=== PATIENT | female | born 1940 | race Caucasian/White ===

== ENCOUNTER 2020-02-21 00:36 | Outpatient (CLI) | payer MEDICARE, OTHER, SELFPAY ==
[2020-02-21 18:58] LABS: SARS-CoV-2 RNA PCR Negative
== END 2020-02-21 00:37 | disposition home or self-care (01) ==
LOC: ANHCOVIDDT 00:36
PROVIDERS: Visit Provider Internal Medicine Gastroenterology
DX: Z01.818 Encounter for other preprocedural examination (principal); Z11.59 Encounter for screening for other viral diseases
CPT/HCPCS: 87635; C9803; U0003

== ENCOUNTER 2020-02-23 01:54 | Day surgery (SDC) | payer MEDICARE, OTHER, SELFPAY ==
[2020-02-20 10:27] VITALS: BMI 31.4
[2020-02-23 08:39] VITALS: BP 132/71; PULSE 76; RESP 18; TEMP 36; O2SAT 100; BMI 31.1
[2020-02-23] MEDS: LACTATED RINGERS 1,000 ML 150 ML IV CONT (08:54)
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
--- NOTE | 2020-02-23 09:05 | WPDGICN ---
Assessment and Plan Assessment and plan (1) Epigastric abdominal pain: Code(s): R10.13 - Epigastric pain Status: Acute Assessment and Plan: Patient appears to be improving clinically taking a higher dose of omeprazole currently 20 mg p.o. daily b.i.d.. Because of abnormal CT scan findings in the duodenum an EGD will be performed. Further recommendations will be given after endoscopy. Currently she is to avoid bland foods. And avoid nonsteroidal anti-inflammatory agents. (2) Abnormal CT scan: Code(s): R93.89 - Abnormal findings on diagnostic imaging of other specified body structures Status: Acute GI Consult Note Consult date/time: 02/23/20 09:05 HPI: Wanda Christian is a 79 year old female Seen in evaluation at the request of Dr. Jacqui Salvador. Patient has a history of vomiting initially in since November . At that time she was found to have influenza a. She noted vomiting associated with epigastric pain. In December of 2019 was admitted to [facility] and diagnosed with myocardial infarction. She has continued to take omeprazole since that time supplemented this with Tums. She has also tried Zofran with no relief of symptoms. A CT scan of the abdomen was performed which revealed a thickening in the duodenum and for this reason an EGD is to be performed. Patient's past medical history is significant for hypertension and COPD. She has a history of a colonoscopy in 2017 however this was limited by poor preparation. Patient reports a recent fall with fracture to her left thumb which is currently bandaged. Review of Systems Review of Systems: All systems reviewed & are unremarkable except as noted in HPI and below Meds Home Medications and Allergies Home Medications Medication Instructions Recorded Confirmed Type acetaminophen-codeine 1 tablet PO PRN PRN 02/20/20 02/23/20 History acidophilus-pectin, citrus 1 cap PO DAILY 02/20/20 02/23/20 History [Acidophilus Probiotic] albuterol sulfate 1 mg INHALATION PRN PRN 02/20/20 02/23/20 History albuterol sulfate [Ventolin HFA] 2 puff INHALATION QID PRN 02/20/20 02/23/20 History aspirin 81 mg PO DAILY 02/20/20 02/23/20 History atorvastatin 40 mg PO DAILY 02/20/20 02/23/20 History calcium carbonate [Calcium 500] 500 mg PO DAILY 02/20/20 02/23/20 History chlorthalidone 12.5 mg PO DAILY 02/20/20 02/23/20 History cholecalciferol (vitamin D3) 3,000 unit PO DAILY 02/20/20 02/20/20 History [Vitamin D3] fluticasone propionate [Flovent 2 inh INHALATION BID 02/20/20 02/23/20 History Diskus] guaifenesin [Mucinex] 600 mg PO Q12H PRN 02/20/20 02/23/20 History levothyroxine [Synthroid] 50 mcg PO DAILY 02/20/20 02/23/20 History lisinopril 20 mg PO DAILY 02/20/20 02/23/20 History lutein 20 mg PO DAILY 02/20/20 02/23/20 History metoprolol succinate 100 mg PO BID 02/20/20 02/23/20 History milnacipran [Savella] 50 mg PO BID 02/20/20 02/23/20 History qlauezxjmqib-mpq-fxym-FA-vit K 1 tablet PO DAILY 02/20/20 02/23/20 History [Adults Multivitamin] polyethylene glycol 3350 [Miralax] 17 g PO DAILY 02/20/20 02/23/20 History spironolactone 25 mg PO DAILY 02/20/20 02/23/20 History vit C-E-zinc fyp-hcyewa-ysgnpq 2 tablet PO DAILY 02/20/20 02/23/20 History [[facility] [place]] Allergies Allergy/AdvReac Type Severity Reaction Status Date / Time latex Allergy Mild Rash Verified 02/20/20 10:51 Vital Signs Vital Signs - 24 hr 02/23/20 08:39 Temperature 36.0 C L Pulse Rate 76 Respiratory Rate 18 Blood Pressure 132/71 Pulse Oximetry 100 Exam Narrative: Exam Narrative: Physical exam reveals patient to be alert. Vital signs are stable. HEENT exam unremarkable. Lungs are clear to auscultation and percussion. Heart is without murmur or extra sounds. Abdominal exam bowel sounds are present soft epigastric tenderness noted in the office 1 week ago has begun to improve. On a higher dose of omeprazole. digital external rectal exam is defer
--- NOTE | 2020-02-23 09:14 | WPDANESEPPF ---
Anes - Initial Pre Proc Eval Procedure: Operation Date: 02/23/20 09:00 Proposed Procedures p Esophagogastroduodenoscopy - Gianni Johnson MD Date/Time: 02/23/20 09:14 Surgeon: Gianni Johnson MD Pre Op Diagnosis: Epigastric Pain Patient Data Age: 79 Gender: F Height: 5 ft 4 in Weight: 82.3 kg Last Vital Signs Temp 96.8 F L 02/23/20 08:39 Pulse 76 02/23/20 08:39 Resp 18 02/23/20 08:39 BP 132/71 02/23/20 08:39 Pulse Ox 100 02/23/20 08:39 Allergies Allergy/AdvReac Type Severity Reaction Status Date / Time latex Allergy Mild Rash Verified 02/20/20 10:51 Home Medications Medication Instructions Recorded Confirmed Type acetaminophen-codeine 1 tablet PO PRN PRN 02/20/20 02/23/20 History acidophilus-pectin, citrus 1 cap PO DAILY 02/20/20 02/23/20 History [Acidophilus Probiotic] albuterol sulfate 1 mg INHALATION PRN PRN 02/20/20 02/23/20 History albuterol sulfate [Ventolin HFA] 2 puff INHALATION QID PRN 02/20/20 02/23/20 History aspirin 81 mg PO DAILY 02/20/20 02/23/20 History atorvastatin 40 mg PO DAILY 02/20/20 02/23/20 History calcium carbonate [Calcium 500] 500 mg PO DAILY 02/20/20 02/23/20 History chlorthalidone 12.5 mg PO DAILY 02/20/20 02/23/20 History cholecalciferol (vitamin D3) 3,000 unit PO DAILY 02/20/20 02/20/20 History [Vitamin D3] fluticasone propionate [Flovent 2 inh INHALATION BID 02/20/20 02/23/20 History Diskus] guaifenesin [Mucinex] 600 mg PO Q12H PRN 02/20/20 02/23/20 History levothyroxine [Synthroid] 50 mcg PO DAILY 02/20/20 02/23/20 History lisinopril 20 mg PO DAILY 02/20/20 02/23/20 History lutein 20 mg PO DAILY 02/20/20 02/23/20 History metoprolol succinate 100 mg PO BID 02/20/20 02/23/20 History milnacipran [Savella] 50 mg PO BID 02/20/20 02/23/20 History hctcxdopddzk-ivv-egbe-FA-vit K 1 tablet PO DAILY 02/20/20 02/23/20 History [Adults Multivitamin] polyethylene glycol 3350 [Miralax] 17 g PO DAILY 02/20/20 02/23/20 History spironolactone 25 mg PO DAILY 02/20/20 02/23/20 History vit C-E-zinc iif-uhqtot-sijudx 2 tablet PO DAILY 02/20/20 02/23/20 History [[facility]] Patient hx anesthesia problems: none Family hx anesthesia problems: none [facility] Past Medical History Medical History (Updated 02/23/20 @ 09:14 by Ace Kimble MD) COPD (chronic obstructive pulmonary disease) Hypertension Anes - Eval Final PreProcedure Day of Procedure 02/23/20 09:14 Patient weight: overweight Heart: regular rate and rhythm Lungs: clear to auscultation Airway: Mallampati scale class II Neurological: alert and oriented Last oral intake: >/= 8 hours ASA classification: II Emergent: no Anesthetic plan: proceed Anesthesia type and monitoring: general GIVS and standard monitoring Informed Consent: The patient's anesthetic plan and its attendant risks and benefits were discussed with the patient/family/POA. Questions were solicited and answers provided to the satisfaction of the patient/family/POA.
[2020-02-23] MEDS: BENZOCAINE (*SP) 60 ML SPRAY CAN (HURRICAINE) 1 SPRAY MUCOUS MEM (09:15)
[2020-02-23 09:30] VITALS: BP 99/46; PULSE 63; RESP 15; O2SAT 100
[2020-02-23 09:40] VITALS: BP 96/48; PULSE 63; RESP 15; O2SAT 100
[2020-02-23 09:50] VITALS: BP 96/48; PULSE 63; RESP 15; O2SAT 100
== END 2020-02-23 10:20 | disposition home or self-care (01) ==
PROVIDERS: PCP Family Medicine Sports Medicine; Visit Provider Internal Medicine Gastroenterology
PROC: 0DJ08ZZ Inspection of Upper Intestinal Tract, Via Natural or Artificial Opening Endoscopic (ICD-10-PCS; CPT 43235; principal; 2020-02-23 09:00)
DX: K31.84 Gastroparesis (principal); I10 Essential (primary) hypertension; J44.9 Chronic obstructive pulmonary disease, unspecified; Z79.82 Long term (current) use of aspirin
CPT/HCPCS: 43239; 87081; J2704; J7120

== ENCOUNTER 2025-04-05 10:35 | Emergency (ER) | payer MEDICARE, OTHER, SELFPAY ==
--- NOTE | ~2025-04-05 | CT_ITS ---
EXAMINATION: CT abdomen pelvis wo con DATE: 04/05/2025 13:51 INDICATION: Evaluate for kidney stones. TECHNIQUE: Computed tomography (CT) of the abdomen and pelvis was performed without intravenous contr ast. The dose-length product was 250.15 mGy-cm. Automated exposure control and iterative reconstructi on technique were employed. COMPARISON: None. FINDINGS: Lung bases unremarkable. Heart size normal. No significant pleural or pericardial effusion. There are multiple bilateral renal stones, largest in the right renal pelvis measuring 1.7 cm. No ur eteral stones. Bladder is unremarkable. There is high density material dependently in the gallbladder , likely sludge. The spleen, adrenal glands and pancreas are unremarkable. 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 Nonobstructive bowel gas pa ttern. No ureteral stones or hydronephrosis. Severe lumbar spondylosis. IMPRESSION: 1. Bilateral nephrolithiasis, nonobstructing. 2: High density material in the gallbladder dependently, most likely sludge versus stones. 3: Splenic artery aneurysm measuring 10 mm. Reviewed, dictated and finalized at location A. IMPRESSION: 1. Bilateral nephrolithiasis, nonobstructing. 2: High density material in the gallbladder dependently, most likely sludge alison raza stones. 3: Splenic artery aneurysm measuring 10 mm.
[2025-04-05 10:40] VITALS: BP 174/94; PULSE 111; RESP 16; TEMP 36.6; O2SAT 96
[2025-04-05 10:54] LABS: Hematocrit 43.5 % (37.0-47.0); Hemoglobin 14.3 g/dL (12.0-15.0); Immature Granulocyte Percent A 0.5 % (0-0.5); Lymphocytes Absolute Auto 2.11 K/mm3 (0.9-3.2); Mean Corpuscular HGB Conc 32.9 g/dl (32-36); Mean Corpuscular Hemoglobin 32.4 pg (26-34); Mean Corpuscular Volume 98.6 fl (80-100); Nucleated Red Blood Cells Absolute Auto 0.000 K/mm3 (0.0-0.012); Nucleated Red Blood Cells Perc 0.0 % (0.0-0.2); Platelet Count Result 272 k/mm3 (150-375); Red Blood Count 4.41 M/mm3 (4.2-5.4); White Blood Count 9.6 K/mm3 (4.5-10.0)
[2025-04-05 11:26] LABS: Alanine Aminotransferase 23 U/L (6-35); Albumin Level 4.6 g/dL (3.5-5.1); Alkaline Phosphatase 85 U/L (38-126); Anion Gap 9 mmol/L (4-12); Aspartate Amino Transferase 41 U/L (14-36); Bilirubin,Total 0.6 mg/dL (0.2-1.3); Blood Urea Nitrogen 16 mg/dL (7-17); Calcium 9.5 mg/dL (8.4-10.2); Carbon Dioxide 27 mmol/L (22-30); Chloride 102 mmol/L (98-107); Estimated CRCL calculation 41 ml/min; Estimated Glomerular Filt Rate 60; Glucose 121 mg/dL (65-110); Potassium 4.0 mmol/L (3.4-5.0); Sodium 138 mmol/L (137-145); Total Protein 7.7 g/dL (6.3-8.2)
[2025-04-05 13:25] VITALS: BP 190/109; PULSE 107; TEMP 36.8; O2SAT 95
--- NOTE | 2025-04-05 13:37 | ED_ITS ---
HPI - Female Genitourinary General Chief complaint: Urogenital-Female Stated complaint: R sided kidney stone is moving Time Seen by Provider: 04/05/25 13:30 History of Present Illness HPI Narrative: Pt complains of pain in left flank and blood in urine this morning. Pt has history of stones in left kidney and sees urologist at [facility]. Pt denies nausea or vomiting or dysuria or frequency. Related Data Home Medications ?Medication ?Instructions ?Recorded ?Confirmed ?Last Taken ?Type acetaminophen 300 mg-codeine 30 mg 1 tablet PO PRN PRN Pain 02/20/20 02/23/20 02/22/20 21:00 History tablet acidophilus 100 million 1 cap PO DAILY 02/20/20 02/23/20 02/22/20 09:00 History cell-pectin, citrus 10 mg capsule (Acidophilus Probiotic) albuterol sulfate 1.25 mg/3 mL 1 mg inhalation PRN PRN Shortness 02/20/20 02/23/20 02/15/20 History solution for nebulization Of Breath albuterol sulfate 90 mcg/actuation 2 puff inhalation QID PRN 02/20/20 02/23/20 02/23/20 06:00 History aerosol inhaler (Ventolin HFA) Shortness Of Breath aspirin 81 mg tablet,delayed 81 mg PO DAILY 02/20/20 02/23/20 02/22/20 09:00 History release atorvastatin 40 mg tablet 40 mg PO DAILY 02/20/20 02/23/20 02/22/20 21:00 History calcium carbonate (Calcium 500) 500 mg PO DAILY 02/20/20 02/23/20 02/22/20 09:00 History chlorthalidone 25 mg tablet 12.5 mg PO DAILY 02/20/20 02/23/20 02/22/20 09:00 History cholecalciferol (vitamin D3) 25 3,000 unit PO DAILY 02/20/20 02/20/20 Unknown History mcg (1,000 unit) tablet (Vitamin D3) fluticasone propionate 50 2 inh inhalation BID 02/20/20 02/23/20 02/22/20 09:00 History mcg/actuation blister powder for inhalation (Flovent Diskus) guaifenesin 600 mg tablet, 600 mg PO Q12H PRN Congestion 02/20/20 02/23/20 02/09/20 History extended release 12 hr (Mucinex) levothyroxine 50 mcg tablet 50 mcg PO DAILY 02/20/20 02/23/20 02/22/20 06:00 History (Synthroid) lisinopril 40 mg tablet 20 mg PO DAILY 02/20/20 02/23/20 02/23/20 06:00 History lutein 20 mg capsule 20 mg PO DAILY 02/20/20 02/23/20 02/22/20 21:00 History metoprolol succinate 50 mg 100 mg PO BID 02/20/20 02/23/20 02/23/20 06:00 History tablet,extended release 24 hr milnacipran 50 mg tablet (Savella) 50 mg PO BID 02/20/20 02/23/20 02/22/20 21:00 History multivit with minerals-iron 18 1 tablet PO DAILY 02/20/20 02/23/20 02/22/20 09:00 History mg-folic ac 400 mcg-vit K 25 mcg tablet (Adults Multivitamin) polyethylene glycol 3350 17 17 g PO DAILY 02/20/20 02/23/20 02/22/20 09:00 History gram/dose oral powder (Miralax) spironolactone 25 mg tablet 25 mg PO DAILY 02/20/20 02/23/20 02/22/20 09:00 History vit C 50 mg-E 15 unit-zinc cit 4.5 2 tablet PO DAILY 02/20/20 02/23/20 02/22/20 09:00 History mg-lutein 2.5 mg-zeaxan chew tablet (Omate) Allergies Allergy/AdvReac Type Severity Reaction Status Date / Time latex Allergy Mild Rash Verified 02/20/20 10:51 Review of Systems 2 Review of Systems: All systems reviewed & are unremarkable except as noted in HPI and below PMFSH Past Medical History Medical History (Updated 04/05/25 @ 17:05 by Frederick Mcleod III, DO) COPD (chronic obstructive pulmonary disease) Hypertension Exam 2 Const: General: healthy appearing and no acute distress Nutritional Appearance: well nourished Orientation/consciousness: patient oriented x3 Limitations: no limitations Resp: Effort & Inspection: normal respiratory effort Auscultation: clear to auscultation bilaterally Cardio: Rate: regular rate Rhythm: regular rhythm GI: GI Palp: Yes Soft to palpation and No Tenderness to palpation present (GI) Auscultation: normal bowel sounds : General: Yes bladder normal to palpation and Yes CVA tenderness on the left Back/Spine/Pelvis: Back: CVA tenderness Skin: General skin exam: normal color Rashes: no rashes Wounds: no wounds Neuro: General: patient oriented x3, moves all extremities, no focal motor deficits and CN's II-XI intact bilaterally Cranial nerves: Yes Nystagmus not present Speech: normal speech Extrem: General: normal to inspection and no clubbing, cyanosis or edema Psych: Appearance: grossly normal Mental Status: mental status grossly normal Affect: normal affect Attitude: cooperative Course Vital Signs Vital signs: Vital Signs Temperature 97.9 F 04/05/25 10:40 Pulse Rate 111 H 04/05/25 10:40 Respiratory Rate 16 04/05/25 10:40 Blood Pressure 174/94 H 04/05/25 10:40 Pulse Oximetry 96 04/05/25 10:40 Temperature 98.3 F 04/05/25 13:25 Pulse Rate 90 04/05/25 17:17 Respiratory Rate 19 04/05/25 17:17 Blood Pressure 167/109 H 04/05/25 17:17 Pulse Oximetry 98 04/05/25 17:17 MDM - Female Genitourinary MDM Narrative Medical decision making narrative: Pt has left flank pain and hematuria and hx of stones, ua labs and ct abd pelvis to rule out stone ordered. labs unremarkable. ua show blood but not infected. ct shows non obstructing nephrolithiasis but no ureterolithiasis. will give shot of toradol and home on flomax and norco and urology follow up. Lab Data 04/05/25 10:45 04/05/25 10:45 Labs: Lab Results 04/05/25 04/05/25 Range/Units 10:45 13:23 WBC 9.6 (4.5-10.0) K/mm3 RBC 4.41 (4.2-5.4) M/mm3 Hgb 14.3 (12.0-15.0) g/dL Hct 43.5 (37.0-47.0) % MCV 98.6 (80-100) fl MCH 32.4 (26-34) pg MCHC 32.9 (32-36) g/dl RDW 12.1 (11.5-14.5) % Plt Count 272 (150-375) k/mm3 MPV 9.6 (7.4-10.4) fl Immature Gran % (Auto) 0.5 (0-0.5) % Neut % (Auto) 67.8 (45.5-73.1) % Lymph % (Auto) 21.9 (18.3-44.2) % [place] % (Auto) 6.5 (2.6-8.5) % Eos % (Auto) 3.0 (0-4.4) % Baso % (Auto) 0.3 (0.2-1.2) % Lymph # (Auto) 2.11 (0.9-3.2) K/mm3 [place] # (Auto) 0.6 (0.1-0.6) K/mm3 Eos # (Auto) 0.3 (0-0.3) K/mm3 Baso # (Auto) 0.0 (0.0-0.1) K/mm3 Abs Immat Gran (auto) 0.05 H (0.00-0.031) K/mm3 Absolute Neuts (auto) 6.5 (1.3-6.7) K/mm3 Absolute Nucleated RBC 0.000 (0.0-0.012) K/mm3 Nucleated RBC % 0.0 (0.0-0.2) % Sodium 138 (137-145) mmol/L Potassium 4.0 (3.4-5.0) mmol/L Chloride 102 (98-107) mmol/L Carbon Dioxide 27 (22-30) mmol/L Anion Gap 9 (4-12) mmol/L BUN 16 (7-17) mg/dL Creatinine 0.90 (0.7-1.0) mg/dL Estim Creat Clear Calc 41 ml/min Estimated GFR 60 (59 - ) Glucose 121 H (65-110) mg/dL Calcium 9.5 (8.4-10.2) mg/dL Total Bilirubin 0.6 (0.2-1.3) mg/dL AST 41 H (14-36) U/L ALT 23 (6-35) U/L Alkaline Phosphatase 85 (38-126) U/L Total Protein 7.7 (6.3-8.2) g/dL Albumin 4.6 (3.5-5.1) g/dL Urine Color Yellow (Yellow) Urine Appearance Clear (Clear) Urine pH 7.0 (5.0-9.0) Ur Specific [place] 1.004 (1.001-1.035) Urine Protein Negative (Negative) mg/dL Urine Glucose (UA) Negative (Negative) mg/dL Urine Ketones Negative (Negative) mg/dL Ur Blood (Man) 2+ H (Negative) Urine Nitrate Negative (Negative) Urine Bilirubin Negative (Negative) Urine Urobilinogen 0.2 (<2.0) mg/dL Add Ur Microanalysis Reviewed Leukocyte Esterase Rfl Trace H (Negative) GREG/UL Urine RBC 0-2 (0-2) /hpf Urine WBC 0-5 (0-3) /hpf Ur Squamous Epith Cells None seen (Few) /hpf Urine Bacteria None seen /hpf Urine Casts 0-2 Discharge Plan Discharge Clinical Impression: Acute left flank pain Patient Disposition: Home Condition: Stable Instructions: Antibiotic Form, Kidney Stones (ED), Hematuria (ED) Patient Language: Unknown Prescriptions: New tamsulosin [Flomax] 0.4 mg capsule 0.4 mg PO DAILY Qty: 10 0RF hydrocodone-acetaminophen 5-325 mg tablet 1 tablet PO Q6H PRN (Reason: pain) Qty: 10 0RF No Action atorvastatin 40 mg Tablet 40 mg PO DAILY metoprolol succinate 50 mg tablet extended release 24 hr 100 mg PO BID acetaminophen-codeine 300-30 mg tablet 1 tablet PO PRN PRN (Reason: Pain) chlorthalidone 25 mg tablet 12.5 mg PO DAILY aspirin 81 mg Tablet,Delayed Release (Dr/Ec) 81 mg PO DAILY spironolactone 25 mg tablet 25 mg PO DAILY calcium carbonate [Calcium 500] 500 mg calcium (1,250 mg) Tablet 500 mg PO DAILY levothyroxine [Synthroid] 50 mcg Tablet 50 mcg PO DAILY polyethylene glycol 3350 [Miralax] 17 gram/dose Powder 17 g PO DAILY lisinopril 40 mg tablet 20 mg PO DAILY lutein 20 mg Capsule 20 mg PO DAILY cholecalciferol (vitamin D3) [Vitamin D3] 25 mcg (1,000 unit) Tablet 3,000 unit PO DAILY Savella 50 mg Tablet 50 mg PO BID acidophilus-pectin, citrus [Acidophilus Probiotic] 100 million cell-10 mg Capsule 1 cap PO DAILY guaifenesin [Mucinex] 600 mg Tablet Extended Release 12hr 600 mg PO Q12H PRN (Reason: Congestion) Adults Multivitamin 18 mg iron-400 mcg-25 mcg Tablet 1 tablet PO DAILY Ocuvite Eye [facility] 50 mg-15 unit- 4.5 mg-2.5 mg Tablet,Chewable 2 tablet PO DAILY Flovent Diskus 50 mcg/actuation Blister With Device 2 inh INHALATION BID albuterol sulfate 1.25 mg/3 mL Solution For Nebulization 1 mg inhalation PRN PRN (Reason: Shortness Of Breath) albuterol sulfate [Ventolin HFA] 90 mcg/actuation Hfa Aerosol Inhaler 2 puff INHALATION QID PRN (Reason: Shortness Of Breath) Follow-up/Referrals: [place],Jacqui Mims DO [Primary Care Provider] -
[2025-04-05 13:45] LABS: Add Urine Microscopic? YES; Appearance Urine Clear (Clear); Glucose Urine UA Negative (Negative); Leukocyte Esterase Ur Trace LEU/UL (Negative); Need Manual Microscopic Reviewed; Nitrate Urine Negative (Negative); Non Pathogenic Casts 0-2; Specific Grav Ur 1.004 (1.001-1.035)
[2025-04-05 16:34] VITALS: BP 180/103; PULSE 99; RESP 18; O2SAT 93
[2025-04-05 16:55] VITALS: BP 176/97
[2025-04-05] MEDS: KETOROLAC 30 MG/ML VIAL (*BKC) IM (17:14)
[2025-04-05 17:17] VITALS: BP 167/109; PULSE 90; RESP 19; O2SAT 98
== END 2025-04-05 17:33 | disposition home or self-care (01) ==
PROVIDERS: Emergency Medicine; Emergency Provider Emergency Medicine; PCP Family Medicine Sports Medicine
DX: R10.9 Unspecified abdominal pain (principal); J44.9 Chronic obstructive pulmonary disease, unspecified; I10 Essential (primary) hypertension; Z87.442 Personal history of urinary calculi; Z79.899 Other long term (current) drug therapy; Z79.82 Long term (current) use of aspirin
CPT/HCPCS: 36415; 74176; 80053; 81001; 85025; 96372; 99284; J1885

== ENCOUNTER 2025-04-14 12:27 | Outpatient (CLI) | payer MEDICARE, OTHER, SELFPAY ==
--- NOTE | 2025-04-14 12:35 | ECG_ITS ---
Test Date: 2025-04-14 12:50:35 Measurements Intervals [place] Rate: 92 P: 36 [place]: 136 QRS: 3 QRSD: 148 T: 132 QT: 423 QTc: 526 Interpretive Statements SINUS RHYTHM LEFT BUNDLE BRANCH BLOCK BASELINE ARTIFACT- I, II, III, AVR, AVL, AVF ABNORMAL ECG No previous ECG available for comparison Electronically Signed On 04-14-2025 12:56:19 CDT by Ernie Harris D.O.
[2025-04-14 13:40] LABS: INR 1.1; Prothrombin Time 14.2 Seconds (11.1-14.7)
[2025-04-14 13:41] LABS: Partial Thromboplastin Time 33.9 Seconds (22.3-36.8)
== END 2025-04-14 12:28 | disposition home or self-care (01) ==
LOC: ANHSURGERY 12:30
PROVIDERS: PCP Family Medicine Sports Medicine; Visit Provider Urology
DX: Z01.818 Encounter for other preprocedural examination (principal); R94.31 Abnormal electrocardiogram [ECG] [EKG]; N20.0 Calculus of kidney; E78.00 Pure hypercholesterolemia, unspecified
CPT/HCPCS: 36415; 85610; 85730; 87086; 93005

== ENCOUNTER 2025-04-20 02:50 | Day surgery (SDC) | payer MEDICARE, OTHER, SELFPAY ==
--- NOTE | 2025-04-13 15:25 | PC.NURSE ---
Report to the Outpatient Waiting Room, entrance under the green pavilion located off [facility], at time _11AM on date _04/20/25 . Planned Procedure Time: ___1:00PM .? Time changes happen often and if your time is changed the preop area will call you the afternoon before. - You and your visitor will be asked to self-screen and do not enter if you have any COVID symptoms. Please call surgeon if you need to reschedule. - A mask is optional within the hospital at this time. Patients may have clear liquids (water, carbonated beverages, clear teas, apple juice) until 3 hours prior to surgery ( 10 AM) with a maximum of 20 ounces. - No food from midnight until time of surgery and no smoking, or chewing tobacco (or any form of nicotine). No chewing gum, candy or mints. Take only the following medications with a SIP of water on the morning of surgery: __PAIN PILL IF NEEDED,INHALER,LEVOTHYROXINE DO NOT STOP ANY OF YOUR OTHER PRESCRIPTION MEDICATIONS PRIOR TO SURGERY EXCEPT THE FOLLOWING Hold all vitamins and supplements for 3 days per anesthesiologist.LAST DOSE 04/16/25 Medications to discontinue per physician ____PT STATES HOLD ASPIRIN 7 DAYS PRE OP PER DR HDZ Date to take last dose 04/12/25 Please no make-up, nail nauruan, hairspray, perfume, deodorant, or body powder the day of surgery.? No jewelry (including any body piercings) or valuables the day of surgery, leave them at home.? Please take a shower or bath the night before, or the morning of, surgery with an antibacterial soap.? Wear comfortable, loose fitting clothing.? Children are encouraged to wear pajamas. - Jewelry must be removed prior to entering the operating room.? Rings and piercings that are not removed may be cut off. - The hospital will not accept responsibility for valuables.? - Please leave all valuables, including medications, at home the day of surgery. If you are going home after surgery, a licensed trailer truck driver must drive you home.? - NO public transportation without another adult if you receive anesthesia. - We recommend that an adult stay with you for 24 hours following discharge. - We also recommend that you do not drive, make important decision, drink alcoholic beverages, or take any drugs that were not prescribed by your health care provider for at least 24 hours after your discharge time. For Pediatric surgeries, we recommend two adults accompany the child home. Follow any additional instructions given to you from your surgeon. Telephone instructions given to _PATIENT and asked if any additional questions and then verbalized understanding. Patient advised to call surgeon office or pre surgery nurse liaison [phone] if any additional questions.
[2025-04-13 15:56] VITALS: BMI 32.0
[2025-04-20] VITALS (8 sets, daily range): BP systolic 142–176; BP diastolic 66–84; PULSE 90–98; RESP 8–18; TEMP 36.7–37.4; O2SAT 91–97; BMI 32.5
--- NOTE | ~2025-04-20 | XR_ITS ---
XR abdomen/kub 1V 04/20/2025 10:52 Indication: ESWL Procedure: KUB Comparison: No prior studies for comparison. Findings: There is a right renal stone measuringr 2 x 1.2 cm. Bowel gas pattern nonobstructive. Moder ate colonic fecal loading. Severe lumbar spondylosis with dextrocurvature of the lumbar spine. Impression: 1: Right nephrolithiasis Reviewed, dictated and finalized at location A. Impression: 1: Right nephrolithiasis
--- OUTSIDE RECORDS SUMMARY | 2025-04-20 02:53 | XMS_ITS | Encounter Summary ---
Author Organization [facility] Address [address] [place] [address] Care Team Providers Care Flatbed Press Operator Name Role Phone Jacqui Salvador DO Primary Care Provider [phone] Katia Regan ANP- Unavailable [phone] Encounter Details Date Type Department Care Team (Late st Contact Info) Description 06/23/2016 Abstract [facility] [address] [place] [phone] Arsenio Pandya MD Social History Tobacco Use Types Packs/Day Years Used Date Smoking Tobacco: Never Assessed Comments Unknown Sex and Gender Information Value Date Recorded Sex Assigned at Female 10/06/2024 9:34 AM ELECTRICIAN CONTROL EQUIPMENT Legal Sex Female 6:20 PM CDT Gender Identity Female 12/12/2019 10:23 PM CDT Sexual Orientation Straight 11/16/2020 2: 19 PM ELECTRICIAN CONTROL EQUIPMENT documented as of this encounter Plan of Treatment Upcoming Encounters Date Type Department Care Team (Late st Contact Info) Description 04/25/2025 3:00 PM CDT Office Visit [facility] Clinic [address] [phone] Jacqui Salvador DO [address] [place] [address] Bharat Cox MD 3 [facility] [address] [place] [address] 05/17/2025 2:20 PM CDT [facility] [address] [facility], [address] [place] [phone] Feliz Hagen MD [address] [facility] [place] [address] 06/22/2025 11:15 AM CDT Office Visit [facility] [place] [phone] Oliver Nuñez NP Three [facility] [address] [place] [address] 06/27/2025 9:40 AM CDT Office Visit [facility] [address] [facility] [place] [address] Jacqui Salvador DO [address] [place] [address] [place] [address] 07/05/2025 9:20 AM CDT [facility] [address] [facility] [place] [phone] Bravo Suh DO [facility] [address] [place] [address] 09/18/2025 10:40 AM ELECTRICIAN CONTROL EQUIPMENT Office Visit [facility] [address] [facility], [address] [place] [phone] Med Fiore MD [address] [place] [address] documented as of this encounter Visit Diagnoses Not on filedocumented in this encounter Additional Health Concerns Infection Onset Date Last Indicated Resolved Time COVID-19 Rule Out 12/07/2019 12/07/2019 08/05/2021 2:39 PM ELECTRICIAN CONTROL EQUIPMENT COVID-19 Rule Out 04/15/2020 04/15/2020 04/16/2020 2:39 PM CDT COVID-19 Rule Out 04/17/2020 04/15/2020 06/16/2020 12:33 AM CDT COVID-19 Rule Out 11/16/2020 11/16/2020 11/16/2020 12:25 PM ELECTRICIAN CONTROL EQUIPMENT COVID-19 Rule Out 05/07/2022 05/07/2022 05/07/2022 10:06 AM CDT COVID-19 Confirmed Comment:05/27/[address] Campuzano, patient meets [facility] guidelines to discontinue COVID-19 isolation. (RG) 05/07/2022 05/07/2022 05/27/2022 8:15 AM C DT COVID-19 Rule Out 2022 2022 2022 10:10 AM ELECTRICIAN CONTROL EQUIPMENT COVID-19 Rule Out 11/15/2022 11/15/2022 11/15/2022 1:57 PM ELECTRICIAN CONTROL EQUIPMENT COVID-19 Rule Out 03/19/2024 03/19/2024 03/19/2024 4:16 PM CDT COVID-19 Rule Out 03/21/2024 03/21/2024 03/21/2024 12:26 PM CDT documented as of this encounter Care Teams Flatbed Press Operator Relationship Specialty Start Date End Date Jacqui Salvador DO PCP - General FAMILY PRACTICE 06/19/16 Katia Regan, ANP- [address] [facility] [address] [place] [phone] NURSE PRACTITIONER ADULT HEALTH 12/28/20 documented as of this encounter
--- OUTSIDE RECORDS SUMMARY | 2025-04-20 02:54 | XMS_ITS | Encounter Summary ---
Author Organization [facility] Address [facility] [place] [address] Care Team Providers Care Scullion Chief Name Role Phone Jacqui Salvador DO Primary Care Provider [phone] Katia Regan ANP- Unavailable [phone] Encounter Details Date Type Department Care Team (Late st Contact Info) Description 12/24/2015 Abstract [facility] Conversion Md, Generic ConversionMD Social History Tobacco Use Types Packs/Day Years Used Date Smoking Tobacco: Never Assessed Comments Unknown Sex and Gender Information Value Date Recorded Sex Assigned at Female 10/06/2024 9:34 AM DESIGN ARCHITECT Legal Sex Female 6:20 PM CDT Gender Identity Female 12/12/2019 10:23 PM CDT Sexual Orientation Straight 11/16/2020 2: 19 PM DESIGN ARCHITECT documented as of this encounter Plan of Treatment Upcoming Encounters Date Type Department Care Team (Late st Contact Info) Description 04/25/2025 3:00 PM CDT Office Visit [facility] [address] [phone] Jacqui Salvador DO [address] [place] [address] [place] [address] Bharat Cox MD [address] [place] [address] 05/17/2025 2:20 PM CDT Office Visit [facility] [address] [facility], [address] [place] [phone] Feliz Hagen MD 3 [place] [address] 06/22/2025 11:15 AM CDT Office Visit [facility] [address] [place] [phone] Oliver Nuñez, STEPHANIE Three [facility] [address] [place] [address] 06/27/2025 9:40 AM CDT Office Visit [facility] [address] [place] [address] Jacqui Salvador DO [address] [place] [address] 07/05/2025 9:20 AM CDT Office Visit [facility] [address] [facility] [place] [phone] Bravo Suh DO [facility] [address] [place] [address] 09/18/2025 10:40 AM DESIGN ARCHITECT Office Visit [facility] [address] [facility], [address] [place] [phone] Med Fiore MD [address] [place] [address] documented as of this encounter Visit Diagnoses Not on filedocumented in this encounter Additional Health Concerns Infection Onset Date Last Indicated Resolved Time COVID-19 Rule Out 12/07/2019 12/07/2019 08/05/2021 2:39 PM DESIGN ARCHITECT COVID-19 Rule Out 04/15/2020 04/15/2020 04/16/2020 2:39 PM CDT COVID-19 Rule Out 04/17/2020 04/15/2020 06/16/2020 12:33 AM CDT COVID-19 Rule Out 11/16/2020 11/16/2020 11/16/2020 12:25 PM DESIGN ARCHITECT COVID-19 Rule Out 05/07/2022 05/07/2022 05/07/2022 10:06 AM CDT COVID-19 Confirmed Comment:05/27/[address] Campuzano, patient meets [facility] guidelines to discontinue COVID-19 isolation. (RG) 05/07/2022 05/07/2022 05/27/2022 8:15 AM C DT COVID-19 Rule Out 2022 2022 2022 10:10 AM DESIGN ARCHITECT COVID-19 Rule Out 11/15/2022 11/15/2022 11/15/2022 1:57 PM DESIGN ARCHITECT COVID-19 Rule Out 03/19/2024 03/19/2024 03/19/2024 4:16 PM CDT COVID-19 Rule Out 03/21/2024 03/21/2024 03/21/2024 12:26 PM CDT documented as of this encounter Care Teams Scullion Chief Relationship Specialty Start Date End Date Jacqui Salvador DO PCP - General FAMILY PRACTICE 06/19/16 Katia Regan, ANP- [address] [facility] [address] [place] [address] NURSE PRACTITIONER ADULT HEALTH 12/28/20 documented as of this encounter
--- OUTSIDE RECORDS SUMMARY | 2025-04-20 02:54 | XMS_ITS | Encounter Summary ---
Author Organization [facility] Address [address] [place] [address] Care Team Providers Care Director Medicare Sales Name Role Phone Jacqui Salvador Primary Care Provider [phone] Katia Regan ANP- Unavailable [phone] Encounter Details Date Type Department Care Team (Late st Contact Info) Description 05/29/2022 Hospital Follow-up Call [facility] Unit [address] [place] [address] Tiara Lima, RN Social History Tobacco Use Types Packs/Day Years Used Date Smoking Tobacco: Former Cigarettes Q uit: 08/27/2003 Smokeless Tobacco: Never Comments:pcp to memorial counselor Alcohol Use Standard Drinks/Week Comments No 0 (1 standard drink = 0.6 oz pur e alcohol) PHQ-2 Answer Date Recorded PHQ-2 Score - If the patient scores above 3, please move on to questions 3-9 1 05/30/2022 Comments No Sex and Gender Information Value Date Recorded Sex Assigned at Female 10/06/2024 9:34 AM BEAUTY DIRECTOR Legal Sex Female 6:20 PM CDT Gender Identity Female 12/12/2019 10:23 PM CDT Sexual Orientation Straight 11/16/2020 2: 19 PM BEAUTY DIRECTOR 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 No / Unsure 05/30/2022 10:51 AM CDT documented as of this encounter Functional Status * RETIRED Are you deaf or do you have serious difficulty hearing Answer Date of Assessment Author Status No 05/26/2022 11:41 PM CDT Acti ve * RETIRED Are you blind or do you have serious difficulty seeing, even when wearing glasses? Answer Date of Assessment Author Status No 05/26/2022 11:41 PM CDT Acti ve * Do you have serious difficulty walking or climbing stairs? Answer Date of Assessment Author Status No 05/26/2022 11:41 PM CDT Sharon Betts, TANG Active * Do you have difficulty dressing or bathing? Answer Date of Assessment Author Status No 05/26/2022 11:41 PM CDT Sharon Betts, TANG Active * Because of a physical, mental, or emotional condition, do you have difficulty doing errands alone such as visiting a doctor's office or shopping? Answer Date of Assessment Author Status No 05/26/2022 11:41 PM CDT Sharon Betts RN Active documented as of this encounter Mental Status * Because of a physical, mental, or emotional condition, do you have serious difficulty concentrating, remembering, or making decisions? Answer Entry Date Author Status No 05/26/2022 11:41 PM CDT hSaron Betts, RN Active documented in this encounter Plan of Treatment Upcoming Encounters Date Type Department Care Team (Late st Contact Info) Description 04/25/2025 3:00 PM CDT Office Visit [facility] G[facility] Specialty Clinic [address] [phone] Jacqui Salvador DO [address] [place] [address] Bharat Cox MD [address] [address] [place] [address] 05/17/2025 2:20 PM CDT Office Visit [facility]is[facility] [address] [facility], [address] [place] [phone] Feliz Hagen MD [address] [facility] [place] [address] 06/22/2025 11:15 AM CDT Office Visit [facility] [address] [place] [phone] Oliver Nuñez NP Three [facility] [address] [place] [address] 06/27/2025 9:40 AM CDT Office Visit [facility] [address] [place] [address] Jacqui Salvador DO [address] [place] [address] 07/05/2025 9:20 AM CDT [facility] [address] [facility] [place] [address] [place] [address] Bravo Suh DO [facility] [address] [place] [address] 09/18/2025 10:40 AM BEAUTY DIRECTOR [facility] [address] [facility] [place], [address] [facility] [place] [phone] Med Fiore MD 3 [facility] [place] [address] documented as of this encounter Goals Goal Patient Goal Type Associated Problems Recent Progress Patient-Stated? Author Return to [facility] General No Marianne Zimmerman, KNOT SAW OPERATOR Patient will return to prior living situation and remain independent in ADLs upon discharge from hospital Lifestyle Yes Charla Luo, RN Note: Will return home with assistance from her granddaughter documented as of this encounter Visit Diagnoses Not on filedocumented in this encounter Additional Health Concerns Infection Onset Date Last Indicated Resolved Time COVID-19 Rule Out 2022 2022 2022 10:10 AM BEAUTY DIRECTOR COVID-19 Rule Out 11/15/2022 11/15/2022 11/15/2022 1:57 PM BEAUTY DIRECTOR COVID-19 Rule Out 03/19/2024 03/19/2024 03/19/2024 4:16 PM CDT COVID-19 Rule Out 03/21/2024 03/21/2024 03/21/2024 12:26 PM CDT Assessment Noted Time PHQ-9 Depression Total Score: 0 12/14/19 22 9:45 AM CDT documented as of this encounter Care Teams Director Medicare Sales Relationship Specialty Start Date End Date Jacqui Salvador DO PCP - General FAMILY PRACTICE 06/19/16 Katia Regan, ANP- [address] [address] NURSE PRACTITIONER ADULT HEALTH 12/28/20 documented as of this encounter
--- OUTSIDE RECORDS SUMMARY | 2025-04-20 02:54 | XMS_ITS | Clinical Summary ---
Author Organization [facility] Address [address] [place] [address] Care Team Providers Care Supervisor Production Name Role Phone Jacqui Salvador Primary Care Provider [phone] Katia Regan ANP-BC Unavailable [phone] Allergies Active Allergy Reactions Criticality Noted Date Comments Budesonide-Formoterol Fumarate Shortness of Breath High 02/19/2018 Entex La Other (see comment) Low 07/01/2016 Skin crawling sensation Glycopyrrolate-Formote rol Tachycardia Medium 02/19/2018 Latex Atopic Dermatitis Medium 10/26/2012 Orphenadrine Other (see comment) Medium 10/26/2012 Other reaction(s): [place] like something was crawling all over head Penicillins Rash,Other (see comment) Low 08/18/2012 break out, pass out Phenylephrine-Guaifene sin Unknown Medium 10/26/2012 Umeclidinium-Vilantero l Unknown Medium 11/06/2016 Other reaction(s): No help Medications Lutein 20 MG Cap Take 20 mg by mouth daily. Active multiple vitamins-minerals (AQUADEKS) Cap Take 1 capsule by mouth daily. Active NON FORMULARY Controlled Substance Contractsigned -[id number] all, TracyActive 018 Active aspirin EC (ASPIRIN) 81 MG EC tabletIndications :Mixed hyperlipidemia,Hy pertension Take 1 tablet (81 mg total) by mouth daily. 90 tablet 1 018 Active Misc. Devices (PULSE OXIMETER) MiscIndications:D yspnea on exertion Use qd and prn w rest &excercise 1 each 020 Active VENTOLIN HFA 108 (90 Base) MCG/ACT inhalerIndication s:COPD (chronic obstructive pulmonary disease) ([facility]) Inhale 2 puffs (180 mcg) by inhalation route every 4-6 hours PRN 6.7 g 1 020 Active levalbuterol (XOPENEX) 1.25 MG/3ML nebulizer solutionIndicatio ns:MURILLO (dyspnea on exertion),Other emphysema ([facility] HHS/HCC),Peripher al edema,Cough with exposure to COVID-19 virus,Aortic atherosclerosis,B ronchitis due to COVID-19 virus,Panlobular emphysema ([facility]),Ex-heavy cigarette smoker (20-39 per day) Take 3 mLs (1.25 mg total) by nebulization every 4 (four) hours as needed for Wheezing. 270 mL 6 022 Active ondansetron (ZOFRAN-ODT) 4 MG disintegrating tablet Take 1 tablet (4 mg total) by mouth every 8 (eight) hours as needed for Nausea. 20 tablet 024 Active solifenacin (VESICARE) 5 MG tabletIndications :Mixed stress and urge urinary incontinence Take 1 tablet (5 mg total) by mouth 2 (two) times daily. 180 tablet 1 024 Active Homeopathic Products (LEG CRAMPS PM SL) Place 1 tablet under the tongue nightly. Active nitroglycerin (NITROSTAT) 0.[address] 1 tablet (0.4 mg total) under the tongue every 5 (five) minutes as needed. Maximum of 3 doses. 30 tablet 3 024 2024 Active polyethylene glycol (GLYCOLAX) packet Take 240 mLs (17 g total) by mouth daily. Dissolve powder in 240 mL water Active fiber (BENEFIBER) Powder Take 5 g by mouth as needed. Active calcium carbonate (TUMS) 500 MG chewable tablet Chew 1 tablet (500 mg total) by mouth as needed for Heartburn. Active levothyroxine (SYNTHROID) 50 MCG tabletIndications :Acquired hypothyroidism Take 1 tablet (50 mcg total) by mouth daily. 90 tablet 1 025 Active fluocinonide (LIDEX) 0.05 % ointmentIndicatio ns:Other eczema Apply topically 2 (two) times daily as needed. 60 g 1 025 Active tiZANidine (ZANAFLEX) 2 MG tabletIndications :take 1 tablet am and noon and 6mg at HS Indications: take 1 tablet am and noon and 6mg at HS Take 1 tab PO in the AM and at noon and take 3 tabs PO at HS PRN 450 tablet 025 Active acetaminophen-cod eine (TYLENOL #3) 300-30 MG tabletIndications :Chronic Pain Indications: Chronic Pain TAKE 1 TABLET BY MOUTH EVERY MORNING , 1 TAB AT NOON, AND 2 TABS AT BEDTIME FOR PAIN 120 tablet 025 Active fluticasone-salme terol (ADVAIR HFA) 115-21 MCG/ACT inhalerIndication s:Chronic obstructive pulmonary disease with acute exacerbation (CMS/HCC HHS/HCC) Inhale 2 puffs into the lungs 2 (two) times daily. Rinse mouth after use. 47.988 g 3 025 2025 Active tiotropium (SPIRIVA RESPIMAT) 2.5 MCG/ACT inhaler (SPIRIVA RESPIMAT)Indicati ons:Chronic obstructive pulmonary disease with acute exacerbation (CMS/HCC HHS/HCC) Inhale 2 puffs into the lungs daily. Please provide assembled. 4 g 12 025 Active omeprazole (PRILOSEC) 20 MG capsuleIndication s:Gastroesophagea l reflux disease without esophagitis Take 1 capsule (20 mg total) by mouth 2 (two) times daily. 180 capsule 1 025 Active atorvastatin (LIPITOR) 40 MG tabletIndications :Mixed hyperlipidemia Take 1 tablet (40 mg total) by mouth nightly at bedtime. at bedtime 90 tablet 1 025 Active milnacipran (SAVELLA) 50 MG tabletIndications :Recurrent major depressive disorder, in partial remission Take 1 tablet (50 mg total) by mouth 2 (two) times daily. 180 tablet 1 025 Active memantine ER (NAMENDA XR) 28 MG 24 hr capsuleIndication s:Memory deficit following other cerebrovascular disease TAKE 1 CAPSULE BY MOUTH EVERY DAY 90 capsule 025 Active memantine ER (NAMENDA XR) 28 MG 24 hr capsuleIndication s:Memory deficit following other cerebrovascular disease TAKE 1 CAPSULE BY MOUTH DAILY. 30 capsule 025 2024 Discontinued Active Problems Problem Noted Date Diagnosed Date Pain management 01/16/2025 Controlled substance agreement signed 01/16/2025 Dynamic left ventricular outflow obstruction 01/2025 HTN (hypertension), benign 01/16/2025 Aortic atherosclerosis 01/16/2025 CKD (chronic kidney disease) stage 2, GFR 60-89 ml/min 01/16/2025 IFG (impaired fasting glucose) 01/16/2025 Orthostatic hypotension 01/16/2025 Other eczema 10/18/2024 BMI 31.0-31.9,adult 10/18/2024 Achilles tendinitis of left lower extremity 06/14 Plantar fasciitis of left foot 06/30/2023 Mixed stress and urge urinary incontinence 06/12 Closed nondisplaced transverse fracture of left patella 04/20/2023 Assessment & Plan (06/30/2023 12:09 PM CDT): We went over the risk and benefits as well as the alternatives. We'll give her some exercises now. She'll hold off on formal physical therapy or an MRI and we'll see her back in six weeks if no improvement. Assessment & Plan (04/20/2023 2:42 PM CDT): We will allow her weight bearing as tolerated as long as she's in the immobilizer. I would recommend wearing the immobilizer to bed. We will see her back in 2-3 weeks for repeat evaluation, x-ray of her knee and her foot. Great toe pain, left 04/20/2023 Fall 04/20/2023 Cervical myelopathy ([facility]) 01/22/2023 Pulmonary hypertension ([facility]) 023 Tension headache 05/30/2022 Stress due to family tension 05/30/2022 At risk for fall due to comorbid condition 05/30 Unsteadiness on feet 05/30/2022 Gallstones 05/27/2022 Recurrent major depressive disorder, in partial remission 01/31/2022 Gastroenteritis 11/17/2020 LENO (acute kidney injury) 12/12/2019 Essential hypertension 07/01/2019 Vitamin D deficiency 07/01/2019 Cramps, muscle, general 07/01/2019 Cervical spine pain 07/01/2019 Mixed hyperlipidemia 01/07/2019 Abnormal magnetic resonance imaging study 2017 Overview (08/16/2018): Date Onset: 02/19/2018 Anxiety 02/19/2018 Overview (08/16/2018): Date Onset: 02/19/2018 Bilateral ovarian cysts 02/19/2018 Overview (08/16/2018): Date Onset: 02/19/2018 History of tobacco abuse 02/19/2018 Overview (08/16/2018): Date Onset: 02/19/2018 Trace tricuspid regurgitation by prior echocardi ogram 02/19/2018 Overview (08/16/2018): Date Onset: 02/19/2018 Vertigo 02/19/2018 Overview (08/16/2018): Date Onset: 02/19/2018 Foot drop, left 04/07/2017 Overview (08/16/2018): Date Onset: 04/07/2017 Somatic dysfunction of chest wall 04/07/2017 Overview (08/16/2018): Date Onset: 04/07/2017 Acquired curvature of spine 02/27/2017 Overview (08/16/2018): Date Onset: 02/27/2017 Chronic constipation 02/27/2017 Overview (08/16/2018): Date Onset: 02/27/2017 Degenerative joint disease (DJD) of lumbar spine 02/27/2017 Overview (08/16/2018): Date Onset: 02/27/2017 Anemia 12/22/2016 Overview (08/16/2018): Date Onset: 12/22/2016 Raynauds syndrome 12/22/2016 Overview (08/16/2018): Date Onset: 12/22/2016 Raynaud's phenomenon without gangrene 12/15/2016 Fibromyalgia 06/21/2015 Overview (08/16/2018): Date Onset: 06/21/2015 Macular degeneration 06/12/2015 Overview (08/16/2018): Note: /[facility];06/04/2015- dry, stable per Dr. Cox Date Onset: 2007, 06/04/2015 Elbow mass 05/15/2015 Overview (08/16/2018): Date Onset: 05/15/2015 GERD (gastroesophageal reflux disease) 5 Overview (08/16/2018): Date Onset: 02/06/2015 Chronic left-sided low back pain with left-sided sciatica 06/15/2014 Overview (08/16/2018): Date Onset: 04/07/2017 Date Onset: 02/19/2018 Date Onset: 06/15/2014 Edema, peripheral 06/15/2014 Overview (08/16/2018): Date Onset: 06/15/2014 Kyphoscoliosis 06/15/2014 Overview (08/16/2018): Date Onset: 06/15/2014 Osteoarthrosis 11/24/2013 Overview (08/16/2018): Date Onset: 11/24/2013 Hypothyroidism 12/23/2012 Overview (08/16/2018): Date Onset: 12/23/2012 Depression 10/26/2012 Overview (08/16/2018): Date Onset: 10/26/2012 Osteoporosis 10/26/2012 Overview (08/16/2018): Date Onset: 02/27/2017 Date Onset: 04/07/2017 Date Onset: 10/26/2012 Peripheral vascular disease Overview (08/16/2018): Date Onset: 12/22/2016 Date Onset: 10/26/2012 Date Onset: 02/19/2018 Date Onset: 10/26/2012 Cardiomegaly Overview (08/16/2018): Date Onset: 12/22/2016 Date Onset: 04/07/2017 Date Onset: 12/22/2016 Chronic obstructive pulmonar y disease with acute exacerbation ([facility]) Overview (08/16/2018): Date Onset: 10/23/2016 Date Onset: 10/23/2016 Coronary artery disease invo lving [place] coronary artery of [place] heart with angina pectoris MURILLO (dyspnea on exertion) Panlobular emphysema ([facility]) Resolved Problems Problem Noted Date Diagnosed Date Resolved Date Tachycardia 05/30/2022 04/25/2024 LBBB (left bundle branch block) 05/27/2022 04/25/2024 Unstable angina ([facility]) 05/26/2022 04/25/2024 Dynamic left ventricular outflow obstruction 1 04/25/2024 Elevated troponin 12/15/2019 04/25/2024 HTN (hypertension), benign 12/15/2019 0 04/25/2024 Hyperlipidemia 08/01/2019 04/25/2024 SOB (shortness of breath) 04/05/2018 Abnormal echocardiography 02/19/2018 Overview (08/16/2018): Date Onset: 02/19/2018 Aortic atherosclerosis 02/27/201704/25 Overview (08/16/2018): Date Onset: 02/27/2017 Usual interstitial pneumonit is ([facility]) 10/23/2016 04/25/2024 Overview (08/16/2018): Date Onset: 10/23/2016 Date Onset: 12/22/2016 Hypertriglyceridemia 024 Overview (08/16/2018): Date Onset: 09/26/2011 Date Onset: 11/08/2012 Murmur 04/25/2024 Near syncope 04/25/2024 Orthostatic hypotension 04/14 Encounters Date Type Department Care Team Description 04/18/2025 Telephone [facility] Medical [facility] - [address] [place] [address] Med Fiore MD Orders 04/17/2025 9:20 AM CDT Office Visit [facility] Medical [facility]ty [facility] - [facility] [address] [facility], [address] [place] [address] Med Fiore MD Follow Up ([facility]) 04/17/2025 Travel 04/12/[address] [place] [address] Jacqui Salvador, DO Medication 04/06/[address] [place] [address] Jacqui Salvador DO Refill Request 03/21/2025 9:20 AM CDT Office Visit [address] [place] [address] Jacqui Salvador DO Medication Management (6 week f/u) 03/21/[address] [place] [address] Jacqui Salvador DO Refill Request 03/21/2025 Travel 02/16/2025 8:40 AM CDT - 02/16/2025 11:59 PM CDT Hospital Encounter [facility] [address] [place] [address] Ivon Rider NP Discharge Disposition: Home or Self Care (Routine Discharge) 02/16/2025 Travel 02/07/2025 Telephone [facility] [address] [place] [address] Jacqui Salvador DO Forms 01/31/2025 Scan [facility] INFO SRVCS Scanned, [facility] 01/31/2025 Telephone [facility], [address] [address] Aristides Soriano MD No Show (no show on 01/25/25 for Cardiac MRI) 01/30/2025 9:20 AM CDT Office Visit [facility] [address] [place] [address] Jacqui Salvador DO Medication Management (2 week f/u on Lipitor. ) 01/30/2025 Travel 01/19/2025 Results Follow-Up [facility] [address] [place] [address] Jacqui Salvador DO MG/PCCL UDS SCREEN from Last 3 Months Immunizations Immunization Administration Dates Next Due Fluzone High Dose (IIV, triv alent, 0.5mL) 07/13/2024,07/12/2019,07/08/2018,2016,07/15/2016 Fluzone High Dose - >Age 65 (Prefilled Syringe) 07/06/2023,07/07/2022,07/02/2021,2019,07/03/2020,07/12/2019,07/08/2018,1 ,07/15/2016 H1N1 2009 Influenza Vaccine 07/24/2009 H1N1 Injectable 2009 Influenza 07/24/2009,2008 Influenza (Generic) 07/14/2016 Influenza Adult (Generic) 07/12/2019,,07/08/2018,2016,07/15/2016,07/24/2009 MODERNA COVID-19 (12+) MRNA, LNP-S, PF, 100 MCG/ 0.5 ML DOSE 10/09/2021,11/10/2020,10/13/2020 Pneumococcal (Pneumovax 23) 07/10/2014 Pneumococcal (Prevnar 13) 07/14/2019 Shingrix 03/01/2020,11/01/2019 Td 12/04/2000 Td (TDVAX) 12/04/2000 Td (Tenivac) preservative free 12/04/2000 Tdap (Boostrix) 09/22/2019 Tdap (Generic) 09/22/2019,09/22/2019 Varicella Vaccine 10/16/2011 Zoster (Zostavax) 18327 Unt/0.65Ml 10/16/2011 Family History Medical History Relation Comments Arthritis Father Heart Attack Father Heart Disease Father Stent Cardiac Father Arthritis Mother Cancer Mother Heart Attack Mother Hypertension Mother Relation Status Comments Brother Alive Daughter Alive Father Granddaughter Alive Maternal Grandfather Maternal Grandmother Mother Paternal Grandfather Paternal Grandmother Sister Alive Son Alive Social History Tobacco Use Types Packs/Day Years Used Date Smoking Tobacco: Former Cigarettes 1 15 Q uit: 08/27/2003 Smokeless Tobacco: Never Tobacco Cessation:Counseling Given: Yes Comments: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 Alcohol Use Standard Drinks/Week Comments Never 0 (1 standard drink = 0.6 oz pur e alcohol) PHQ-2 Answer Date Recorded Patient Health Questionnaire-2 Score 0 10/18/2024 Comments No Sex and Gender Information Value Date Recorded Sex Assigned at Female 10/06/2024 9:34 AM [employer] Legal Sex Female 6:20 PM CDT Gender Identity Female 12/12/2019 10:23 PM CDT Sexual Orientation Straight 11/16/2020 2: 19 PM [employer] Occupation Industry Job Start Date Job End Date 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 Not on file Not on file Not on file Last Filed Vital Signs Vital Sign Reading Time Taken Comments Blood Pressure 158/90 04/17/2025 9:39 AM CDT Pulse 98 04/17/2025 9:23 AM CDT Temperature 36.3 C (97.4 F) 03/21/2025 9:16 AM CDT Respiratory Rate 12 04/17/2025 9:23 AM CDT Oxygen Saturation 98% 04/17/2025 9:23 AM CDT Inhaled Oxygen Concentration - - Weight 81.2 kg (179 lb) 04/17/2025 9:23 AM CDT Height 158.8 cm (5' 2.5) 04/17/2025 9:23 AM CDT Body Mass Index 32.22 04/17/2025 9:23 AM CDT Plan of Treatment Upcoming Encounters Date Type Department Care Team (Late st Contact Info) Description 04/25/2025 3:00 PM CDT Office Visit [facility] [place] [address] [place] [phone] Jacqui Salvador, DO [address] [place] [id number] Bharat Cox MD [address] [facility] [address] [place] [address] 05/17/2025 2:20 PM CDT Office Visit [facility] - [facility] [address] [facility], [address] [place] [phone] Feliz Hagen MD [address] [place] [address] 06/22/2025 11:15 AM CDT [facility] [address] [place] [phone] Oliver Nuñez NP [address] [place] [address] [place] [address] 06/27/2025 9:40 AM CDT Office Visit [facility] [address] [place], [place] [phone] Jacqui Salvador, DO [address] [place] [phone] 07/05/2025 9:20 AM CDT Office Visit [facility] [address] [facility] [place] [phone] Bravo Suh DO [address] [facility] [address] [place] [address] 09/18/2025 10:40 AM [employer] Office Visit [facility] [address] [facility], [address] [place] [address] Med Fiore MD [address] [place] [address] Health Maintenance Due Date Last Done Comments RSV Immunization or 60+ Years (1 - 1-dose 75+ series) 2017 COVID-19 Vaccine ( - 2023- season) 2024 10/09/2021, 11/10/2020, 10/13/2020 Annual Medicare Wellness Visit 10/10/2028 Postponed from 11/15/2007 (Elected Alternative Screening/Test) DTaP, Tdap and Td Vaccines (4 - Td or Tdap) 09/22/2029 09/22/2019, 09/22/2019, 09/22/2019, Additional history exists Pneumococcal Vaccine: 50+ Years Completed 07/14/2019, 07/10/2014 Zoster Vaccines Completed 03/01/2020, 10/15, 10/16/2011 PHQ-2 (Physician [place]) Completed 10/18/2024 Dexa Scan (General) Completed 11/10/2024 Meningococcal B Vaccine Aged Out No l onger eligible based on patient's age to complete this topic Meningococcal Vaccine Aged Out No lashay marilyn eligible based on patient's age to complete this topic RSV Immunizations Under 20 Months Aged Out No longer eligible b ased on patient's age to complete this topic Goals Goal Patient Goal Type Associated Problems Recent Progress Patient-Stated? Author Return to indpendent living General No Marianne Zimmerman, FIRE [employer] Patient will return to prior living situation and remain independent in ADLs upon discharge from hospital Lifestyle Yes Charla Luo, RN Note: Will return home with assistance from her granddaughter Procedures Procedure Name Priority Date/Time Associated Diagnosis Comments XR ABD KUB Routine 02/16/2025 9:02 AM CDT Bilateral renal stones BONE DENSITY/DEXA Routine 11/10/2024 1:2 7 PM [employer] Postmenopausal from Last 3 Months or Most Recently Relevant to Health Maintenance Results * XR ABD KUB (02/16/2025 9:02 AM CDT) Anatomical Region Laterality Modality Abdomen Computed Tomogra phy 02/16/2025 10:0 0 AM CDT Impressions 02/16/2025 10:01 AM CDT IMPRESSION: Right-sided kidney stone Ordered By: IVON RIDER Interpreted By: Armani Root MD, 02/16/2025 10:00 AM Narrative 02/16/2025 10:01 AM CDT [address] [place] [address] Two VIEW(s) OF THE ABDOMEN History: Kidney stones Comparison:October 23, 2024 2 views of the abdomen demonstrate a normal overall bowel gas pattern. Quantity of stool throughout the colon is within normal limits. A bulky stone overlies the right kidney and is unchanged from previous. No stones are confidently visualized overlying the left kidney. The bony elements are unchanged Procedure Note Armani Root MD - 02/16/[address] [place] [address] Two VIEW(s) OF THE ABDOMEN History: Kidney stones Comparison:October 23, 2024 2 views of the abdomen demonstrate a normal overall bowel gas pattern.Quantity of stool throughout the colon is within normal limits. A bulkystone overlies the right kidney and is unchanged from previous. No stonesare confidently visualized overlying the left kidney. The bony elementsare unchanged IMPRESSION: Right-sided kidney stone Ordered By: IVON RIDER Interpreted By: Armani Root MD, 02/16/2025 10:00 AM Ivon Rider [facility] Final Result * BONE DENSITY/DEXA (11/10/2024 1:27 PM [employer]) Anatomical Region Laterality Modality Bone Bone Density 11/11/2024 7:52 AM [employer] Impressions 11/11/2024 7:52 AM [employer] IMPRESSION: WHO Classification: Osteopenia RECOMMENDATIONS: All patients should ensure an adequate intake of dietary calcium and vitamin D. The NOF recommend adults under the age of 50 need 1000 mg of calcium and 400-800 IU of vitamin D daily. Effective therapy for the prevention and treatment of osteoporosis include bisphosphonates. Follow-up: People with diagnosed cases of osteoporosis or at high risk for fracture should have regular bone mineral density test. For patients eligible for Medicare, routine testing is allowed once every 2 years. Testing frequency can be increased to one year for patients who have rapidly progressing disease, those who are receiving or discontinuing medical therapy to restore bone mass, or have additional risk factors. Referred By: JACQUI SALVADOR Interpreted By: Urbano Lee MD, 11/11/2024 7:52 AM Narrative 11/11/2024 7:52 AM [employer] [facility] [address] [place] [address] EXAMINATION: BONE DENSITY/DEXA INDICATIONS: Postmenopausal TECHNIQUE: DEXA bone mineral density evaluation was performed in the AP projection over the lumbar spine and both hips utilizing standard imaging techniques. ASSESSMENT: The BMD measured at the AP spine L1-L4 is 0.865 g/cm? with a T-score of -1.7. The BMD measured at the left femoral neck is 0.687 g/cm? with a T-score of -1.5. The BMD measured at the left hip is 0.868 g/cm? with a T-score of -0.6. The BMD measured at the right femoral neck is 0.675 g/cm? with a T-score of - 1.6. The BMD measured at the right hip is 0.820 g/cm? with a T-score of -1.0. FRAX 10-year fracture risk: Major Osteoporotic Fracture: 13% Hip Fracture: 3.2% Procedure Note Urbano Lee MD - 11/11/2024 [facility] [address] [address] EXAMINATION: BONE DENSITY/DEXA INDICATIONS: Postmenopausal TECHNIQUE: DEXA bone mineral density evaluation was performed in the APprojection over the lumbar spine and both hips utilizing standard imagingtechniques. ASSESSMENT: The BMD measured at the AP spine L1-L4 is 0.865 g/cm? with a T-score of-1.7. The BMD measured at the left femoral neck is 0.687 g/cm? with a T-score of-1.5. The BMD measured at the left hip is 0.868 g/cm? with a T-score of -0.6. The BMD measured at the right femoral neck is 0.675 g/cm? with a T-scoreof -1.6. The BMD measured at the right hip is 0.820 g/cm? with a T-score of -1.0. FRAX 10-year fracture risk: Major Osteoporotic Fracture: 13% Hip Fracture: 3.2% IMPRESSION: WHO Classification: Osteopenia RECOMMENDATIONS: All patients should ensure an adequate intake of dietary calcium andvitamin D. The NOF recommend adults under the age of 50 need 1000 mg ofcalcium and 400-800 IU of vitamin D daily. Effective therapy for theprevention and treatment of osteoporosis include bisphosphonates. Follow-up: People with diagnosed cases of osteoporosis or at high risk for fractureshould have regular bone mineral density test. For patients eligible forMedicare, routine testing is allowed once every 2 years. Testing frequencycan be increased to one year for patients who have rapidly progressingdisease, those who are receiving or discontinuing medical therapy torestore bone mass, or have additional risk factors. Referred By: JACQUI SALVADOR Interpreted By: Urbano Lee MD, 11/11/2024 7:52 AM Jacqui Salvador DO DEXA Final Result from Last 3 Months or Most Recently Relevant to Health Maintenance Insurance [address] Advance Directives Documents on File Type Date Recorded Patient Allergy Nurse Expl anation Advance Directives and Living Will 12/31/2015 12:00 AM ADVANCED DIRECTIVES * Full Code (Latest Code Status on File) Date Activated Date Inactivated Comments 05/26/2022 11:55 PM 05/28/2022 5:33 PM * Full Code Date Activated Date Inactivated Comments 11/16/2020 2:19 PM 11/17/2020 4:07 PM * Full Code Date Activated Date Inactivated Comments 12/12/2019 8:49 PM 12/15/2019 3:56 PM Care Teams Supervisor Production Relationship Specialty Start Date End Date Jacqui Salvador DO PCP - General [facility]ILY [facility]ACTICE 06/19/16 Katia Regan, ANP- [address] [facility] [id number] [place] [address] NURSE PRACTITIONER ADULT HEALTH 12/28/20
--- NOTE | 2025-04-20 06:32 | WPDHPUPDATE1 ---
History and Physical Update Update Date/Time: 04/20/25 06:32 History and Physical has been reviewed, including an updated exam of the patient. There are NO changes in the patient's condition. Risks, benefits, and alternatives have been discussed and questions answered. Patient agrees to proceed with procedure.
[2025-04-20] MEDS: LACTATED RINGERS 1,000 ML 30 ML IV CONT (12:15)
--- NOTE | 2025-04-20 12:42 | WPDANESEPPF ---
Anes - Initial Pre Proc Eval Procedure: Operation Date: 04/20/25 13:00 Proposed Procedures p Right Extracorporeal Shock Wave Lithotripsy, - Mario Interiano MD s Cystoscopy, Right Stent Placement - Mario Interiano MD Date/Time: 04/20/25 12:42 Surgeon: Mario Interiano MD Pre Op Diagnosis: right renal stone Patient Data Age: 84 Gender: F Height: 1.57 m Weight: 79.4 kg Allergies Allergy/AdvReac Type Severity Reaction Status Date / Time latex Allergy Mild Rash Verified 04/13/25 15:24 Penicillins Allergy Unknown PASSED OUT Verified 04/13/25 15:25 Home Medications ?Medication ?Instructions ?Recorded ?Confirmed ?Type acetaminophen 300 mg-codeine 30 mg 1 tablet PO PRN PRN Pain 02/20/20 04/13/25 History tablet acidophilus 100 million 1 cap PO DAILY 02/20/20 04/13/25 History cell-pectin, citrus 10 mg capsule (Acidophilus Probiotic) albuterol sulfate 1.25 mg/3 mL 1 mg inhalation PRN PRN Shortness 02/20/20 04/13/25 History solution for nebulization Of Breath albuterol sulfate 90 mcg/actuation 2 puff inhalation QID PRN 02/20/20 04/13/25 History aerosol inhaler (Ventolin HFA) Shortness Of Breath aspirin 81 mg tablet,delayed 81 mg PO DAILY 02/20/20 04/13/25 History release atorvastatin 40 mg tablet 40 mg PO DAILY 02/20/20 04/13/25 History calcium carbonate (Calcium 500) 500 mg PO DAILY 02/20/20 04/13/25 History chlorthalidone 25 mg tablet 12.5 mg PO DAILY 02/20/20 04/13/25 History cholecalciferol (vitamin D3) 25 3,000 unit PO DAILY 02/20/20 04/13/25 History mcg (1,000 unit) tablet (Vitamin D3) fluticasone propionate 50 2 inh inhalation BID 02/20/20 04/13/25 History mcg/actuation blister powder for inhalation (Flovent Diskus) guaifenesin 600 mg tablet, 600 mg PO Q12H PRN Congestion 02/20/20 04/13/25 History extended release 12 hr (Mucinex) levothyroxine 50 mcg tablet 50 mcg PO DAILY 02/20/20 04/13/25 History (Synthroid) lisinopril 40 mg tablet 20 mg PO DAILY 02/20/20 04/13/25 History lutein 20 mg capsule 20 mg PO DAILY 02/20/20 04/13/25 History metoprolol succinate 50 mg 100 mg PO BID 02/20/20 04/13/25 History tablet,extended release 24 hr milnacipran 50 mg tablet (Savella) 50 mg PO BID 02/20/20 04/13/25 History multivit with minerals-iron 18 1 tablet PO DAILY 02/20/20 04/13/25 History mg-folic ac 400 mcg-vit K 25 mcg tablet (Adults Multivitamin) polyethylene glycol 3350 17 17 g PO DAILY 02/20/20 04/13/25 History gram/dose oral powder (Miralax) spironolactone 25 mg tablet 25 mg PO DAILY 02/20/20 04/13/25 History vit C 50 mg-E 15 unit-zinc cit 4.5 2 tablet PO DAILY 02/20/20 04/13/25 History mg-lutein 2.5 mg-zeaxan chew tablet ([facility]) hydrocodone 5 mg-acetaminophen 325 1 tablet PO Q6H PRN pain #10 tabs 04/05/25 04/13/25 Rx mg tablet tamsulosin 0.4 mg capsule (Flomax) 0.4 mg PO DAILY #10 caps 04/05/25 04/13/25 Rx cholecalciferol (vitamin D3) 125 5,000 unit PO WEEKLY 04/13/25 04/13/25 History mcg (5,000 unit) capsule cholecalciferol (vitamin D3) 50 2,000 unit PO WEEKLY 04/13/25 04/13/25 History mcg (2,000 unit) capsule docusate sodium 100 mg capsule 100 mg PO BID 04/13/25 04/13/25 History (Colace) memantine 28 mg capsule 28 mg PO DAILY 04/13/25 04/13/25 History sprinkle,extended release 24hr milnacipran 50 mg tablet (Savella) 50 mg PO BID 04/13/25 04/13/25 History omeprazole 20 mg capsule,delayed 20 mg PO BID 04/13/25 04/13/25 History release tiotropium bromide 2.5 2 puff inhalation Q24H 04/13/25 04/13/25 History mcg/actuation mist for inhalation (Spiriva Respimat) vibegron 75 mg tablet 75 mg PO DAILY 04/13/25 04/13/25 History Patient hx anesthesia problems: none Family hx anesthesia problems: none Results Review: All pre-operative results and documents have been reviewed as part of the pre-operative evaluation. [facility] Past Medical History Medical History COPD (chronic obstructive pulmonary disease) Hypertension Social History Social History Smoking packs per day: 2 Smoking cigarettes per day: 40.0 Years smoked: 20 Smoking pack-years: 40.00 Smoking status: Former smoker Tobacco type: cigarettes Smoking end date: 09/14/02 Living arrangements: with family Spiritual care concerns: No Anes - Eval Final PreProcedure Day of Procedure 04/20/25 12:42 Patient weight: obese Heart: regular rate and rhythm Lungs: decreased breath sounds Airway: Mallampati scale class III and special considerations poor dentition Neurological: other (alert) Last oral intake: >/= 8 hours ASA classification: III Emergent: no Anesthetic plan: proceed Anesthesia type and monitoring: general LMA and standard monitoring Results Review: All pre-operative results and documents have been reviewed as part of the pre-operative evaluation. Informed Consent: The patient's anesthetic plan and its attendant risks and benefits were discussed with the patient/family/POA. Questions were solicited and answers provided to the satisfaction of the patient/family/POA.
[2025-04-20] MEDS: ceFAZolin 2 GM in SODIUM CHLORIDE 0.9% IV 50 ML 100 ML IVPB (13:18)
[2025-04-20] MEDS: LIDOCAINE 2% GEL UROJET 10 ML PKG MUCOUS MEM (13:46)
--- NOTE | 2025-04-20 14:06 | P.OP_ITS ---
Procedure Note - Detailed Date of Procedure 04/20/25 Pre-op Diagnosis Right renal stone Post-op Diagnosis Same Procedure Performed Cystoscopy, right ureteral stent placement, right ESWL Surgeon Mario Interiano MD Anesthesia General Description of Procedure The patient was brought to the operative suite where she was placed in the frog- legged position on the Dornier lithotripter table. Flexible cystoscopy was undertaken with a 16F flexible cystoscopy. Her urethra and bladder neck were endoscopically normal. The bladder mucosa was normal and there was a single, orthotopic ureteral orifice bilaterally. A 0.035 glidewire was advanced into the right renal pelvis under fluoroscopy. A 4.8F J-J ureteral stent was positioned with the proximal coil in the renal pelvis and the distal coil in the bladder. The patient was then repositioned in the supine position and the focal point of the lithotriptor was placed at a 2cm right renal pelvic calculus. A total of 2500 shocks were delivered at a power setting of 4. There appeared to be good fragmentation of the stone. The patient tolerated the procedure well and was taken to the recovery room in good condition. Drains No Packing No Pathology None sent Complications No immediate complications
== END 2025-04-20 15:48 | disposition home or self-care (01) ==
PROVIDERS: PCP Family Medicine Sports Medicine; Visit Provider Urology
PROC: (CPT 50590; principal; 2025-04-20 13:00)
PROC: (CPT 52352; 2025-04-20 13:00)
DX: N20.0 Calculus of kidney (principal); Z87.891 Personal history of nicotine dependence; E66.9 Obesity, unspecified; Z68.32 Body mass index [BMI] 32.0-32.9, adult
CPT/HCPCS: 50590; 52332; 74018; J0690; C1769; C2617; J1100; J2003; J2405; J2704; J3010; J7120

== ENCOUNTER 2025-05-05 15:41 | Outpatient (CLI) | payer MEDICARE, OTHER, SELFPAY ==
--- NOTE | ~2025-05-05 | XR_ITS ---
XR abdomen/kub 1V 05/05/2025 16:06 Indication: Bilateral renal stones Procedure: KUB Comparison: 04/20/2025 Findings: There are are stones in the lower pole of the right kidney as well as the renal pelvis. There is a right internal ureteral stent in expected position. Bowel gas pattern nonobstructive with moderate colonic fecal loading. There is severe lumbar spondylosis with dextroscoliosis. Impression: 1: Right nephrolithiasis. Reviewed, dictated and finalized at location O. Impression: 1: Right nephrolithiasis.
== END 2025-05-05 15:42 | disposition home or self-care (01) ==
PROVIDERS: PCP Family Medicine Sports Medicine; Visit Provider Urology
DX: N20.0 Calculus of kidney (principal)
CPT/HCPCS: 74018

== ENCOUNTER 2025-06-05 14:03 | Outpatient (CLI) | payer MEDICARE, OTHER, SELFPAY ==
--- NOTE | ~2025-06-05 | XR_ITS ---
EXAMINATION: XR abdomen/kub 1V DATE: 06/05/2025 14:28 INDICATION: Renal stone TECHNIQUE: A supine view of the abdomen on 2 radiographs was obtained. COMPARISON: 05/05/2025 FINDINGS: Large amount of stool. Interval removal of the right-sided double-J ureteral stent. There are bilateral renal stones which are similar to the prior study given differences in technique and overlying bowel gas and stool. There are a few tiny calcifications in the pelvis similar to the prior study. Moderate amount of air in nondilated large bowel. Possible small right-sided pleural effusion. IMPRESSION: 1. Interval removal of the right-sided double-J ureteral stent. 2. Visualized bilateral renal stones are similar to the prior study. 3. There are a few tiny calcifications of the pelvis similar to the prior study. 4. Possible small right-sided pleural effusion. 5. Evaluation is limited due to a large amount of stool. If continued concern, consider a short-term follow-up study or CT imaging for further assessment. Reviewed, dictated and finalized at location Q. IMPRESSION: 1. Interval removal of the right-sided double-J ureteral stent. 2. Visualized bilateral renal stones are similar to the prior study. 3. There are a few tiny calcifications of the pelvis similar to the prior study . 4. Possible small right-sided pleural effusion. 5. Evaluation is limited due to a large amount of stool. If continued concern, consider a short-term follow-up study or CT imaging for f urther assessment.
--- OUTSIDE RECORDS SUMMARY | 2025-06-05 14:24 | XMS_ITS | Clinical Summary ---
Author Organization [facility] Address [address] [place] [address] Care Team Providers Care Store Operations Associate Name Role Phone Jacqui Salvador Primary Care Provider [phone] Katia Regan ANP-BC Unavailable [phone] Allergies Active Allergy Reactions Criticality Noted Date Comments Budesonide-Formoterol Fumarate Shortness of Breath High 02/19/2018 Entex La Other (see comment) Low 07/01/2016 Skin crawling sensation Glycopyrrolate-Formote rol Tachycardia Medium 02/19/2018 Latex Atopic Dermatitis Medium 10/26/2012 Orphenadrine Other (see comment) Medium 10/26/2012 Other reaction(s): [place] like something was crawling all over head Penicillins Rash,Other (see comment) Low 08/18/2012 break out, pass out Phenylephrine-Guaifene sin Unknown Medium 10/26/2012 Umeclidinium-Vilantero l Unknown Medium 11/06/2016 Other reaction(s): No help Medications Lutein 20 MG Cap Take 20 mg by mouth daily. Active multiple vitamins-minerals (AQUADEKS) Cap Take 1 capsule by mouth daily. Active NON FORMULARY Controlled Substance Contractsigned [id number] l, TracyActive 02/02/20 Active aspirin EC (ASPIRIN) 81 MG EC tabletIndications: Mixed hyperlipidemia,Hyp ertension Take 1 tablet (81 mg total) by mouth daily. 90 tablet 1 08/18/20 18 Active Misc. Devices (PULSE OXIMETER) MiscIndications:Dy spnea on exertion Use qd and prn w rest &excercise 1 each 12/22/19 20 Active VENTOLIN HFA 108 (90 Base) MCG/ACT inhalerIndications :COPD (chronic obstructive pulmonary disease) ([facility] HHS/HCC) Inhale 2 puffs (180 mcg) by inhalation route every 4-6 hours PRN 6.7 g 1 06/27/20 20 Active levalbuterol (XOPENEX) 1.25 MG/3ML nebulizer solutionIndication s:MURILLO (dyspnea on exertion),Other emphysema ([facility] HHS/HCC),Periphera l edema,Cough with exposure to COVID-19 virus,Aortic atherosclerosis,Br onchitis due to COVID-19 virus,Panlobular emphysema ([facility]),Ex-heavy cigarette smoker (20-39 per day) Take 3 mLs (1.25 mg total) by nebulization every 4 (four) hours as needed for Wheezing. 270 mL 6 08/01/20 22 Active ondansetron (ZOFRAN-ODT) 4 MG disintegrating tablet Take 1 tablet (4 mg total) by mouth every 8 (eight) hours as needed for Nausea. 20 tablet 03/17/20 24 Active solifenacin (VESICARE) 5 MG tabletIndications: Mixed stress and urge urinary incontinence Take 1 tablet (5 mg total) by mouth 2 (two) times daily. 180 tablet 1 06/14/20 24 Active Homeopathic Products (LEG CRAMPS PM SL) Place 1 tablet under the tongue nightly. Active nitroglycerin (NITROSTAT) 0.[address] 1 tablet (0.4 mg total) under the tongue every 5 (five) minutes as needed. Maximum of 3 doses. 30 tablet 3 07/14/20 24 2024 Active polyethylene glycol (GLYCOLAX) packet Take 240 mLs (17 g total) by mouth daily. Dissolve powder in 240 mL water Active fiber (BENEFIBER) Powder Take 5 g by mouth as needed. Active calcium carbonate (TUMS) 500 MG chewable tablet Chew 1 tablet (500 mg total) by mouth as needed for Heartburn. Active levothyroxine (SYNTHROID) 50 MCG tabletIndications: Acquired hypothyroidism Take 1 tablet (50 mcg total) by mouth daily. 90 tablet 1 09/30/19 25 Active fluocinonide (LIDEX) 0.05 % ointmentIndication s:Other eczema Apply topically 2 (two) times daily as needed. 60 g 1 10/18/19 25 Active tiZANidine (ZANAFLEX) 2 MG tabletIndications: take 1 tablet am and noon and 6mg at HS Indications: take 1 tablet am and noon and 6mg at HS Take 1 tab PO in the AM and at noon and take 3 tabs PO at HS PRN 450 tablet 03/21/20 25 Active fluticasone-salmet cee (ADVAIR HFA) 115-21 MCG/ACT inhalerIndications :Chronic obstructive pulmonary disease with acute exacerbation (CMS/HCC HHS/HCC) Inhale 2 puffs into the lungs 2 (two) times daily. Rinse mouth after use. 47.988 g 3 03/21/20 25 2025 Active tiotropium (SPIRIVA RESPIMAT) 2.5 MCG/ACT inhaler (SPIRIVA RESPIMAT)Indicatio ns:Chronic obstructive pulmonary disease with acute exacerbation (CMS/HCC HHS/HCC) Inhale 2 puffs into the lungs daily. Please provide assembled. 4 g 12 03/21/20 25 Active omeprazole (PRILOSEC) 20 MG capsuleIndications :Gastroesophageal reflux disease without esophagitis Take 1 capsule (20 mg total) by mouth 2 (two) times daily. 180 capsule 1 03/21/20 25 Active atorvastatin (LIPITOR) 40 MG tabletIndications: Mixed hyperlipidemia Take 1 tablet (40 mg total) by mouth nightly at bedtime. at bedtime 90 tablet 1 03/21/20 25 Active milnacipran (SAVELLA) 50 MG tabletIndications: Recurrent major depressive disorder, in partial remission Take 1 tablet (50 mg total) by mouth 2 (two) times daily. 180 tablet 1 03/21/20 25 Active linaCLOtide (LINZESS) 290 MCG capsuleIndications :Chronic idiopathic constipation Take 1 capsule (290 mcg total) by mouth every morning before breakfast. Take on empty stomach at least 30 minutes prior to first meal of the day. Swallow whole. Do not open capsule or chew. 90 capsule 3 05/02/20 25 2025 Active memantine ER (NAMENDA XR) 28 MG 24 hr capsuleIndications :Memory deficit following other cerebrovascular disease Take 1 capsule (28 mg total) by mouth daily. 90 capsule 06/02/20 25 Active acetaminophen-code ine (TYLENOL #3) 300-30 MG tabletIndications: Chronic Pain Indications: Chronic Pain TAKE 1 TABLET BY MOUTH EVERY MORNING , 1 TAB AT NOON, AND 2 TABS AT BEDTIME FOR PAIN 120 tablet 06/02/20 25 Active acetaminophen-code ine (TYLENOL #3) 300-30 MG tabletIndications: Chronic Pain Indications: Chronic Pain TAKE 1 TABLET BY MOUTH EVERY MORNING , 1 TAB AT NOON, AND 2 TABS AT BEDTIME FOR PAIN 120 tablet 03/21/20 25 2024 Disconti nued(Reo rder) memantine ER (NAMENDA XR) 28 MG 24 hr capsuleIndications :Memory deficit following other cerebrovascular disease TAKE 1 CAPSULE BY MOUTH EVERY DAY 90 capsule 04/11/20 25 2024 Disconti nued(Reo rder) Active Problems Problem Noted Date Diagnosed Date [...] pain, left 04/20/2023 Fall 04/20/2023 Cervical myelopathy ([facility]) 01/22/2023 Pulmonary hypertension ([facility]) 023 Tension headache 05/30/2022 Stress due to [...] 06/21/2015 Macular degeneration 06/12/2015 Overview (08/16/2018): Note: /[place] [facility];06/04/2015- dry, stable per Dr. 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 MURILLO (dyspnea on exertion) Panlobular emphysema ([facility]) Resolved Problems Problem Noted Date Diagnosed Date Resolved Date Tachycardia 05/30/2022 04/25/2024 LBBB (left bundle branch block) 05/27/2022 04/25/2024 Unstable angina ([facility]) 05/26/2022 04/25/2024 Dynamic left ventricular outflow obstruction 1 04/25/2024 Elevated troponin 12/15/2019 04/25/2024 HTN (hypertension), benign 12/15/2019 0 04/25/2024 Hyperlipidemia 08/01/2019 04/25/2024 SOB (shortness of breath) 04/05/2018 Abnormal echocardiography 02/19/2018 Overview (08/16/2018): Date Onset: 02/19/2018 Aortic atherosclerosis 02/27/201704/25 Overview (08/16/2018): Date Onset: 02/27/2017 Usual interstitial pneumonit is ([facility]) 10/23/2016 04/25/2024 Overview (08/16/2018): Date Onset: 10/23/2016 Date Onset: 12/22/2016 Hypertriglyceridemia 024 Overview (08/16/2018): Date Onset: 09/26/2011 Date Onset: 11/08/2012 Murmur 04/25/2024 Near syncope 04/25/2024 Orthostatic hypotension 04/14 Encounters Date Type Department Care Team Description 06/04/2025 Results Follow-Up [facility] Multis[facility] [address] [facility], [address] [place] [address] Med Fiore MD MRI BRAIN WWO CON 06/02/2025 Telephone [facility] [address] [place] [address] Jacqui Salvador DO Refill Request 06/01/2025 12:27 PM CDT - 06/01/2025 11:59 PM CDT Hospital Encounter [facility] MRI [address] [place] [address] Med Fiore MD Discharge Disposition: Home or Self Care (Routine Discharge) 06/01/2025 Travel 05/17/2025 2:20 PM CDT Office Visit [facility] Multispecialty Care - [facility] [address] [facility], [address] [place] [phone] Feliz Hagen MD New Patient (Cervical Myelopathy) 05/17/2025 MyChart Message Enc [facility] Inter[facility] [place] [address] [id number] Courtney, [facility] Provider Pain Management Referral 05/17/2025 Travel 05/12/2025 Abstract [facility] [address] [facility] [place] [address] Jacqui Salvador DO 05/10/2025 8:20 AM CDT - 05/10/2025 11:59 PM CDT Hospital Encounter [facility] Diagnostic Imaging [address] [place] [address] Francis Interiano MD Discharge Disposition: Home or Self Care (Routine Discharge) 05/10/2025 Travel 05/05/2025 Scan MG [employer] INFO SRVCS Scanned, Doc Med Group Image (SCAN) 04/25/2025 3:00 PM CDT Office Visit [facility] [address] [address] Jacqui Salvador DO Kim, Peter S, MD Constipation 04/25/2025 Travel 04/20/2025 Scan [facility] HEALTH INFO SRVCS Scanned, Doc [facility] Image (SCAN); Procedure (SCAN) 04/18/2025 Telephone [facility] [place] [address] [place] [phone] Med Fiore MD Orders 04/17/2025 9:20 AM CDT Office Visit [facility] Multispecialty Care - [facility] [address] [facility], [address] [place] [phone] Mde Fiore MD Follow Up ([facility]) 04/17/2025 Travel 04/12/[address] [place] [address] Jacqui Salvador, DO Medication 04/06/[address] [place] [address] Jacqui Salvador, DO Refill Request 04/05/2025 Scan [employer] INFO SRVCS Scanned, Doc Med Group CT (SCAN) 03/21/2025 9:20 AM CDT Office Visit [address] [place] [address] Jacqui Salvador, DO Medication Management (6 week f/u) 03/21/[address] [place] [address] Jacqui Salvador, DO Refill Request 03/21/2025 Travel from Last 3 Months Immunizations Immunization Administration [...] (Generic) 09/22/2019,09/22/2019 Varicella Vaccine 10/16/2011 Zoster (Zostavax) 23113 Unt/0.65Ml 10/16/2011 Family History Medical History Relation [...] Never Tobacco Cessation:Counseling Given: Yes Comments:pcp to residential substance abuse counselor Alcohol Use Standard Drinks/Week Comments Never 0 (1 standard drink = 0.6 oz pur e alcohol) PHQ-2 Answer Date Recorded Patient Health Questionnaire-2 Score 0 10/18/2024 Comments No Sex and Gender Information Value Date Recorded Sex Assigned at Female 10/06/2024 9:34 AM BAKER DOUGHNUT Legal Sex Female 6:20 PM CDT Gender Identity Female 12/12/2019 10:23 PM CDT Sexual Orientation Straight 11/16/2020 2: 19 PM BAKER DOUGHNUT 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 Industry Job Start Date Job End Date 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 Not on file Not on file Not on file Last Filed Vital Signs Vital Sign Reading Time Taken Comments Blood Pressure 148/81 05/17/2025 3:17 PM CDT Pulse 96 05/17/2025 2:17 PM CDT Temperature 36.7 C (98.1 F) 05/17/2025 2:17 PM CDT Respiratory Rate 17 04/25/2025 3:18 PM CDT Oxygen Saturation 95% 05/17/2025 2:17 PM CDT Inhaled Oxygen Concentration - - Weight 80.5 kg (177 lb 6.4 oz) 05/17/2025 2:17 P M CDT Height 158.8 cm (5' 2.5) 05/17/2025 2:17 PM CDT Body Mass Index 31.93 05/17/2025 2:17 PM CDT Plan of Treatment Upcoming Encounters Date Type Department Care Team (Late st Contact Info) Description 06/21/2025 9:20 AM CDT Appointment [facility] Interventional Pain Management Center [address] [address] [id number] Lyric Mcdonnell, TOP SPOTTER [address] [facility] [address] [place] [phone] (Work) 06/22/2025 11:15 AM CDT Office Visit [facility] [address] [place] [phone] Oliver Nuñez, HOU[employer]Y [employer] [facility] [address] [place] [address] 06/27/2025 9:40 AM CDT Office Visit [facility] [address] [place] [address] Jacqui Salvador DO [address] [place] [address] 07/05/2025 9:20 AM CDT Office Visit [facility] Multispecialty Care - [facility] [address] [facility] [place] [address] Bravo Suh DO [address] [facility] [address] [address] [place] [address] 08/01/2025 1:00 PM BAKER DOUGHNUT Office Visit [facility] Medical [facility] [place] [address] [place] [phone] Bharat Cox MD [address] [facility] [address] [place] [address] 09/18/2025 10:40 AM BAKER DOUGHNUT Office Visit [facility] Medical Group Multispecialty Care - [facility] [address] [facility], [address] [place] [address] Med Fiore MD [address] [place] [address] Health Maintenance Due Date Last Done Comments RSV Immunization or 60+ Years (1 - 1-dose 75+ series) 2017 COVID-19 Vaccine (4 - 2024- season) 2025 10/09/2021, 11/10/2020, 10/13/2020 Annual Medicare Wellness Visit 10/10/2028 Postponed from 11/15/2007 (Elected Alternative Screening/Test) DTaP, Tdap and Td Vaccines (4 - Td or Tdap) 09/22/2029 09/22/2019, 09/22/2019, 09/22/2019, Additional history exists Pneumococcal Vaccine: 50+ Years Completed 07/14/2019, 07/10/2014 Zoster Vaccines Completed 03/01/2020, 10/15, 10/16/2011 PHQ-2 (Physician [place]) Completed 10/18/2024 Dexa Scan (General) Completed 11/10/2024 [...] to indpendent living General No Marianne Zimmerman, PRINTING PLATE MAKER Patient will return to prior living situation and remain independent in ADLs upon discharge from hospital Lifestyle Yes Charla Luo, RN Note: Will return home with assistance from her granddaughter Procedures Procedure Name Priority Date/Time Associated Diagnosis Comments MRI BRAIN WWO CON Routine 06/01/2025 2:2 5 PM CDT NPH (normal pressure hydrocephalus) ([facility]/H[facility] HHS/HCC) XR ABD KUB Routine 05/10/2025 8:34 AM CDT Bilateral renal stones IMAGE GENERIC 05/05/2025 IMAGE GENERIC 04/20/2025 PROCEDURE GENERIC (SCAN ORDER) 04/20/2025 CT GENERIC 04/05/2025 BONE DENSITY/DEXA Routine 11/10/2024 1:2 7 PM BAKER DOUGHNUT Postmenopausal from Last 3 Months or Most Recently Relevant to Health Maintenance Results * MRI BRAIN WWO CON (06/01/2025 2:25 PM CDT) Anatomical Region Laterality Modality Head Magnetic Resonan ce 06/02/2025 3:58 PM CDT Impressions 06/02/2025 4:09 PM CDT IMPRESSION: 1. No acute abnormality. 2. Mild small vessel ischemic change and brain volume loss with mild advancement since prior exam.. 3. No MRI evidence of NPH Ordered By: MED FIORE Interpreted By: Narcisa Acevedo, 06/02/2025 3:58 PM Narrative 06/02/2025 4:09 PM CDT [address] [place] [address] IMAGING STUDIES: MRI BRAIN WWO CON DATE: 06/01/2025 12:50 PM CLINICAL HISTORY: NPH . Memory loss COMPARISON: 04/28/2024. CONTRAST 16 mL of dotarem FINDINGS: No acute process. No evidence of intracranial mass or pathologic contrast enhancement. No acute major vessel infarct.. Ventricular system is symmetric without evidence of midline shift or mass effect. Grossly normal flow voids within the intracranial portions of the vertebrobasilar system and internal carotid arteries in their proximal portions. No gross abnormality within the brainstem or posterior fossa.. Mild small vessel ischemic change and brain volume loss with mild advancement since prior exam. Ventricular system has a normal size compared to the brain volume loss. No MRI evidence of normal pressure hydrocephalus.. .. Midline structures are within normal limits. Normal thickness to the corpus callosum. Procedure Note Neftaly Acevedo MD - 06/02/[address] [place] [address] IMAGING STUDIES: MRI BRAIN WWO CON DATE: 06/01/2025 12:50 PM CLINICAL HISTORY: NPH . Memory loss COMPARISON: 04/28/2024. CONTRAST 16 mL of dotarem FINDINGS: No acute process. No evidence of intracranial mass or pathologic contrastenhancement. No acute major vessel infarct.. Ventricular system is symmetric without evidence of midline shift or masseffect. Grossly normal flow voids within the intracranial portions of thevertebrobasilar system and internal carotid arteries in their proximalportions. No gross abnormality within the brainstem or posterior fossa.. Mild small vessel ischemic change and brain volume loss with mildadvancement since prior exam. Ventricular system has a normal size compared to the brain volume loss. NoMRI evidence of normal pressure hydrocephalus.. .. Midline structures are within normal limits. Normal thickness to thecorpus callosum. IMPRESSION: 1. No acute abnormality. 2. Mild small vessel ischemic change and brain volume loss with mildadvancement since prior exam.. 3. No MRI evidence of NPH Ordered By: MED FIORE Interpreted By: Narcisa Acevedo, 06/02/2025 3:58 PM us Med Fiore MD MRI Final Res ult * XR ABD KUB (05/10/2025 8:34 AM CDT) Anatomical Region Laterality Modality Abdomen Computed Tomogra phy 05/10/2025 9:29 AM CDT Impressions 05/10/2025 9:29 AM CDT IMPRESSION: Improving stone burden Ordered By: FRANCIS INTERIANO Interpreted By: Armani Root MD, 05/10/2025 9:29 AM Narrative 05/10/2025 9:29 AM CDT [address] [place] [address] Two VIEW(s) OF THE ABDOMEN History: Kidney stones Comparison:February 16, 2025 2 views of the abdomen demonstrate a right ureteral stent to reside in the expected position. Bulky stone seen on the previous exam has largely resolved, however, fragments remain within the lower pole of the right kidney. Overall, bowel gas pattern appears normal. The bony elements are unchanged Procedure Note Armani Root MD - 05/10/[address] [place] [address] Two VIEW(s) OF THE ABDOMEN History: Kidney stones Comparison:February 16, 2025 2 views of the abdomen demonstrate a right ureteral stent to reside in theexpected position. Bulky stone seen on the previous exam has largelyresolved, however, fragments remain within the lower pole of the rightkidney. Overall, bowel gas pattern appears normal. The bony elements areunchanged IMPRESSION: Improving stone burden Ordered By: FRANCIS INTERIANO Interpreted By: Armani Root MD, 05/10/2025 9:29 AM us Francis Interiano MD GENERAL IMAGING Final Result * IMAGE GENERIC (05/05/2025) Only the most recent of2 resultswithin the time period is included. Anatomical Region Laterality Modality Other 05/05/2025 us [facility] Scanned SCANNING Final Resu lt * PROCEDURE GENERIC (SCAN ORDER) (04/20/2025) 04/20/2025 us [facility] Scanned SCANNING Final Resu lt * CT GENERIC (04/05/2025) Anatomical Region Laterality Modality Other 04/05/2025 us [facility] Scanned SCANNING Final Resu lt * BONE DENSITY/DEXA (11/10/2024 1:27 PM BAKER DOUGHNUT) Anatomical Region Laterality Modality Bone Bone Density 11/11/2024 7:52 AM BAKER DOUGHNUT Impressions 11/11/2024 7:52 AM BAKER DOUGHNUT IMPRESSION: WHO Classification: Osteopenia RECOMMENDATIONS: All patients [...] 11/11/2024 7:52 AM Narrative 11/11/2024 7:52 AM BAKER DOUGHNUT [facility] [id number] [place] [address] EXAMINATION: BONE DENSITY/DEXA INDICATIONS: Postmenopausal TECHNIQUE: DEXA [...] Procedure Note Urbano Lee MD - 11/11/2024 [facility] [address] [place] [address] EXAMINATION: BONE DENSITY/DEXA INDICATIONS: Postmenopausal TECHNIQUE: DEXA [...] Most Recently Relevant to Health Maintenance [place] [address] [place] [address] [employer] Advance Directives Documents on File Type Date Recorded Patient Steel Analyst Expl anation Advance Directives and Living Will 12/31/2015 12:00 AM ADVANCED DIRECTIVES * Full Code (Latest Code Status on File) Date Activated Date Inactivated Comments 05/26/2022 11:55 PM 05/28/2022 5:33 PM * Full Code Date Activated Date Inactivated Comments 11/16/2020 2:19 PM 11/17/2020 4:07 PM * Full Code Date Activated Date Inactivated Comments 12/12/2019 8:49 PM 12/15/2019 3:56 PM Care Teams Store Operations Associate Relationship Specialty Start Date End Date Jacqui Salvador DO PCP - General FAMILY PRACTICE 06/19/16 Katia Regan, ANP- [address] [facility] [address] [place] [address] NURSE PRACTITIONER ADULT HEALTH 12/28/20
--- OUTSIDE RECORDS SUMMARY | 2025-06-05 14:24 | XMS_ITS | Encounter Summary ---
Author Organization [facility] Address [address] [place] [address] Care Team Providers Care Consumer Studies Professor Name Role Phone Jacqui Salvador Primary Care Provider [phone] Katia Regan ANP- Unavailable [phone] Encounter Details Date Type Department Care Team (Late st Contact Info) Description 05/29/2022 Hospital Follow-up Call [facility] Cardiovascular Care Unit [address] [place] [address] Tiara Lima, RN Social History Tobacco Use Types Packs/Day Years Used Date Smoking Tobacco: Former Cigarettes Q uit: 08/27/2003 Smokeless Tobacco: Never Comments:pcp to correctional counselor Alcohol Use Standard Drinks/Week Comments No 0 (1 standard drink = 0.6 oz pur e alcohol) PHQ-2 Answer Date Recorded PHQ-2 Score - If the patient scores above 3, please move on to questions 3-9 1 05/30/2022 Comments No Sex and Gender Information Value Date Recorded Sex Assigned at Female 10/06/2024 9:34 AM CHAIN MAKER HAND Legal Sex Female 6:20 PM CDT Gender Identity Female 12/12/2019 10:23 PM CDT Sexual Orientation Straight 11/16/2020 2: 19 PM CHAIN MAKER HAND 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 Not on file Not on file Not [...] No 05/26/2022 11:41 PM CDT Sharon Betts, RN Active documented in this encounter Plan of Treatment Upcoming Encounters Date Type Department Care Team (Late st Contact Info) Description 06/21/2025 9:20 AM CDT Appointment [facility] Interventional Pain Management [place] [address] [phone] Lyric Mcdonnell, FORENSIC ANTHROPOLOGIST [phone] [place] [address] -[phone] (Work) 06/22/2025 11:15 AM CDT Office Visit [facility] [address] [place] [phone] Oliver Nuñez, HUMAN RESOURCES OPERATIONS DIRECTOR Three [facility] [address] [place] [address] 06/27/2025 9:40 AM CDT Office Visit [facility] [address] [place] [address] Jacqui Salvador, 201 [facility] [place], [place] [phone] 07/05/2025 9:20 AM CDT [facility] 3 [facility], [address] [place] [phone] Bravo Suh 3 [facility] [address] [place], [place] [address] 08/01/2025 1:00 PM CHAIN MAKER HAND Office Visit [facility] Special[facility] Clinic [address] [phone] Bharat Cox MD 3 [facility] [address] [place] [address] 09/18/2025 10:40 AM CHAIN MAKER HAND [facility] 3 [facility], [address] [place] [phone] Med Fiore MD 3 [facility] [address] [place], [place] [address] documented as of this encounter Goals Goal Patient Goal Type Associated Problems Recent Progress Patient-Stated? Author [facility] General No Marianne Zimmerman, INTERNAL AUDIT CONSULTANT Patient will return to prior living situation and remain independent in ADLs upon discharge from hospital Lifestyle Yes Charla Luo, RN Note: Will return home with assistance from her granddaughter documented as of this encounter Visit Diagnoses Not on filedocumented in this encounter Additional Health Concerns Infection Onset Date Last Indicated Resolved Time COVID-19 Rule Out 2022 2022 2022 10:10 AM CHAIN MAKER HAND COVID-19 Rule Out 11/15/2022 11/15/2022 11/15/2022 1:57 PM CHAIN MAKER HAND COVID-19 Rule Out 03/19/2024 03/19/2024 03/19/2024 4:16 PM CDT COVID-19 Rule Out 03/21/2024 03/21/2024 03/21/2024 12:26 PM CDT Assessment Noted Time PHQ-9 Depression Total Score: 0 12/14/19 9:45 AM CDT documented as of this encounter Care Teams Consumer Studies Professor Relationship Specialty Start Date End Date Jacqui Salvador DO PCP - General FAMILY PRACTICE 06/19/16 Katia Regan, ANP- [address] [facility] [address] [address] NURSE PRACTITIONER ADULT HEALTH 12/28/20 documented as of this encounter
--- OUTSIDE RECORDS SUMMARY | 2025-06-05 14:24 | XMS_ITS | Encounter Summary ---
Author Organization [facility] Address [address] [place] [address] Care Team Providers Care Drawbench Operator Helper Name Role Phone Jacqui Salvador Primary Care Provider [phone] Katia Regan [facility]- Unavailable [phone] Reason for Visit * Reason Onset Date Comments Results 06/04/2025 Encounter Details Date Type Department Care Team (Latest Contact Info) Description 06/04/2025 Results Follow-Up [facility] Medical Group Multispecialty Care - [address], [address] [place] [phone] Med Fiore MD [address] [place] [address] [phone] MRI BRAIN WWO CON Social History Tobacco Use Types Packs/Day Years Used Date Smoking Tobacco: Former Cigarettes 1 15 Q uit: 08/27/2003 Smokeless Tobacco: Never Comments:pcp to college admissions counselor Alcohol Use Standard Drinks/Week Comments Never 0 (1 standard drink = 0.6 oz pur e alcohol) PHQ-2 Answer Date Recorded Patient Health Questionnaire-2 Score 0 10/18/2024 Comments No Sex and Gender Information Value Date Recorded Sex Assigned at Female 10/06/2024 9:34 AM ADMITTED ATTORNEYS Legal Sex Female 6:20 PM CDT Gender Identity Female 12/12/2019 10:23 PM CDT Sexual Orientation Straight 11/16/2020 2: 19 PM ADMITTED ATTORNEYS 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 Greenberg. ----- Message from Dr. Med Fiore sent at 06/04/2025 10:09 PM CDT ----- Please let her know MRI of the brain is stable as compared to before. There were no strokes, or brain tumor. ----- Message ----- From: User, [id number] Sent: 06/02/2025 4:10 PM CDT To: Med Fiore MD documented in this encounter Plan of Treatment Upcoming Encounters Date Type Department Care Team (Late st Contact Info) Description 06/21/2025 9:20 AM CDT Appointment [facility] Interventional Pain Management [facility] [place] [address] [phone] Lyric Mcdonnell, ENGINEERING DESIGN SUPERVISOR 3 [facility] [address] [place] [address] -[phone] (Work) 06/22/2025 11:15 AM CDT Office Visit [facility] [address] [phone] Oliver Nuñez, BOX BLANK MACHINE OPERATOR HELPER Three [facility] [address] [place] [address] 06/27/2025 9:40 AM CDT Office Visit [facility] 201 [facility] [place], [place] [phone] Jacqui Salvador 201 [place] [address] 07/05/2025 9:20 AM CDT Office Visit [facility] Medical [facility] Multispecialty Care - [facility] 3 [facility] [address] [place] [address] Bravo Suh DO 3 [facility] [address] [place] [address] 08/01/2025 1:00 PM ADMITTED ATTORNEYS Office Visit [facility]ology [facility]ty [facility] [place] [address] [place] [phone] Bharat Cox MD 3 [facility] [place] [address] [place] [address] 09/18/2025 10:40 AM ADMITTED ATTORNEYS Office Visit [facility] Medical Group Multispecialty Care - [facility] 3 [facility], [address] [place] [address] Med Fiore MD 3 [facility] [place] [place] [address] documented as of this encounter Goals Goal Patient Goal Type Associated Problems Recent Progress Patient-Stated? [facility] General No Marianne Zimmerman, TRUCK SERVICE MANAGER Patient will return to prior living situation and remain independent in ADLs upon discharge from hospital Lifestyle Yes Charla Luo, RN Note: Will return home with assistance from her granddaughter documented as of this encounter Visit Diagnoses Not on filedocumented in this encounter Additional Health Concerns Assessment Noted Time PHQ-9 Depression Total Score: 9 04/11/20 24 1:07 PM CDT documented as of this encounter Care Teams Drawbench Operator Helper Relationship Specialty Start Date End Date Jacqui Salvador DO PCP - General FAMILY PRACTICE 06/19/16 Katia Regan, ANP- [address] [facility] [address] [place] [address] NURSE PRACTITIONER ADULT HEALTH 12/28/20 documented as of this encounter
--- OUTSIDE RECORDS SUMMARY | 2025-06-05 14:24 | XMS_ITS | Encounter Summary ---
Author Organization [facility] Address [facility] [place] [address] Care Team Providers Care High School Computer Science Teacher Name Role Phone Jacqui Salvador DO Primary Care Provider [phone] Katia Regan [facility]- Unavailable [phone] Encounter Details Date Type Department Care Team (Late st Contact Info) Description 05/12/2025 Abstract [facility] [address] [place] [phone] Jacqui Salvador DO [address] [place] [phone] Social History Tobacco Use Types Packs/Day Years Used Date Smoking Tobacco: Former Cigarettes 1 15 Q uit: 08/27/2003 Smokeless Tobacco: Never Comments:pcp to day camp counselor Alcohol Use Standard Drinks/Week Comments Never 0 (1 standard drink = 0.6 oz pur e alcohol) PHQ-2 Answer Date Recorded Patient Health Questionnaire-2 Score 0 10/18/2024 Comments No Sex and Gender Information Value Date Recorded Sex Assigned at Female 10/06/2024 9:34 AM INSTRUMENT AND CONTROL SERVICE PERSON Legal Sex Female 6:20 PM CDT Gender Identity Female 12/12/2019 10:23 PM CDT Sexual Orientation Straight 11/16/2020 2: 19 PM INSTRUMENT AND CONTROL SERVICE PERSON 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 Answer Date of Assessment Author Status No 05/26/2022 11:41 PM CDT Sharon Betts RN Active * Because of a physical, mental, [...] Betts RN Active documented in this encounter Plan of Treatment Upcoming Encounters Date Type Department Care Team (Late st Contact Info) Description 06/21/2025 9:20 AM CDT Appointment [facility] Interventional Pain Management [place] [address] [phone] Lyric Mcdonnell, EXTRUSION DIE TEMPLATE MAKER 3 [facility] [address] [place] [address] [phone] (Work) 06/22/2025 11:15 AM CDT Office Visit [facility] [place] [address] Oliver Nuñez, SENIOR TECHNICAL TRAINER Three [facility] [address] [place] [address] 06/27/2025 9:40 AM CDT Office Visit [facility] [address] [facility] [place] [address] Jacqui Salvador, [address] [place] [address] 07/05/2025 9:20 AM CDT Office Visit [facility] 3 [facility] [address] [place] [phone] Bravo Suh 3 [facility] [address] [place] [phone] 08/01/2025 1:00 PM INSTRUMENT AND CONTROL SERVICE PERSON Office Visit [facility] Gastroenterology Specialty Clinic [address] [phone] Bharat Cox MD 3 [facility] [place] [address] [place] [address] 09/18/2025 10:40 AM INSTRUMENT AND CONTROL SERVICE PERSON Office Visit [facility] 3 [facility], [address] [place] [phone] Med Fiore MD 3 [place] [address] documented as of this encounter Goals Goal Patient Goal Type Associated Problems Recent Progress Patient-Stated? Author Return to [facility] General No Marianne Zimmerman, CROZER OPERATOR Patient will return to prior living [...] documented as of this encounter Care Teams High School Computer Science Teacher Relationship Specialty Start Date End Date Jacqui Salvador DO PCP - General FAMILY PRACTICE 06/19/16 Katia Regan, ANP- [address] [facility] [address] [place] [address] NURSE PRACTITIONER ADULT HEALTH 12/28/20 documented as of this encounter
--- OUTSIDE RECORDS SUMMARY | 2025-06-05 14:24 | XMS_ITS | Encounter Summary ---
Author Organization [facility] Address [facility] [place] [address] Care Team Providers Care Milk Of Lime Slaker Name Role Phone Jacqui Salvador Primary Care Provider [phone] Katia Regan ANP- Unavailable [phone] Encounter Details Date Type Department Care Team (Late st Contact Info) Description 12/24/2015 Abstract [facility] Conversion Md, Generic Conversion, Social History Tobacco Use Types Packs/Day Years Used Date Smoking Tobacco: Never Assessed Comments Unknown Sex and Gender Information Value Date Recorded Sex Assigned at Female 10/06/2024 9:34 AM MATERIALS ENGINEER Legal Sex Female 6:20 PM CDT Gender Identity Female 12/12/2019 10:23 PM CDT Sexual Orientation Straight 11/16/2020 2: 19 PM MATERIALS ENGINEER documented as of this encounter Plan of Treatment Upcoming Encounters Date Type Department Care Team (Late st Contact Info) Description 06/21/2025 9:20 AM CDT Appointment [facility] Interventional [place] [address] [phone] Lyric Mcdonnell, STONE BELT SANDER 3 [facility] [address] [place] [address] [phone] (Work) 06/22/2025 11:15 AM CDT [facility] 200 [facility] [place] [address] Oliver Nuñez NP Three [facility] [address] [place] [address] 06/27/2025 9:40 AM CDT Office Visit [facility] [address] [place] [address] Jacqui Salvador DO [address] [place] [address] 07/05/2025 9:20 AM CDT [facility] 3 [facility] [address] [place] [address] Bravo Suh DO 3 [facility] [address] [place] [address] 08/01/2025 1:00 PM MATERIALS ENGINEER Office Visit [facility]ology [facility]ty [facility] [place] [address] [place] [phone] Bharat Cox MD 3 [facility] [address] [place] [address] 09/18/2025 10:40 AM MATERIALS ENGINEER [facility], [address] [place] [phone] Med Fiore MD 3 [facility] [place] [address] documented as of this encounter Visit Diagnoses Not on filedocumented in this encounter Additional Health Concerns Infection Onset Date Last Indicated Resolved Time COVID-19 Rule Out 12/07/2019 12/07/2019 08/05/2021 2:39 PM MATERIALS ENGINEER COVID-19 Rule Out 04/15/2020 04/15/2020 04/16/2020 2:39 PM CDT COVID-19 Rule Out 04/17/2020 04/15/2020 06/16/2020 12:33 AM CDT COVID-19 Rule Out 11/16/2020 11/16/2020 11/16/2020 12:25 PM MATERIALS ENGINEER COVID-19 Rule Out 05/07/2022 05/07/2022 05/07/2022 10:06 AM CDT COVID-19 Confirmed Comment:05/27/[address] Campuzano, patient meets [facility] guidelines to discontinue COVID-19 isolation. (RG) 05/07/2022 05/07/2022 05/27/2022 8:15 AM C DT COVID-19 Rule Out 2022 2022 2022 10:10 AM MATERIALS ENGINEER COVID-19 Rule Out 11/15/2022 11/15/2022 11/15/2022 1:57 PM MATERIALS ENGINEER COVID-19 Rule Out 03/19/2024 03/19/2024 03/19/2024 4:16 PM CDT COVID-19 Rule Out 03/21/2024 03/21/2024 03/21/2024 12:26 PM CDT documented as of this encounter Care Teams Milk Of Lime Slaker Relationship Specialty Start Date End Date Jacqui Salvador DO PCP - General FAMILY PRACTICE 06/19/16 Katia Regan, ANP- [address] [facility] [address] [place] [address] NURSE PRACTITIONER ADULT HEALTH 12/28/20 documented as of this encounter
--- OUTSIDE RECORDS SUMMARY | 2025-06-05 14:24 | XMS_ITS | Encounter Summary ---
Author Organization [facility] Address [address] [place] [address] Care Team Providers Care Paper Production Engineer Name Role Phone Jacqui Salvador Primary Care Provider [phone] Katia Regan ANP- Unavailable [phone] Encounter Details Date Type Department Care Team (Late st Contact Info) Description 06/23/2016 Abstract [facility] [address] [place] [phone] Arsenio Pandya MD Social History Tobacco Use Types Packs/Day Years Used Date Smoking Tobacco: Never Assessed Comments Unknown Sex and Gender Information Value Date Recorded Sex Assigned at Female 10/06/2024 9:34 AM MANAGER DATA WAREHOUSING Legal Sex Female 6:20 PM CDT Gender Identity Female 12/12/2019 10:23 PM CDT Sexual Orientation Straight 11/16/2020 2: 19 PM MANAGER DATA WAREHOUSING documented as of this encounter Plan of Treatment Upcoming Encounters Date Type Department Care Team (Late st Contact Info) Description 06/21/2025 9:20 AM CDT Appointment [facility] Interventional Pain [place] [address] [phone] Lyric Mcdonnell, EXPERIMENTAL PLASTICS FABRICATOR [address] [phone] (Work) 06/22/2025 11:15 AM CDT [facility] [address] [place] [phone] Oliver Nuñez NP Three [facility] [address] [place] [address] 06/27/2025 9:40 AM CDT Office Visit [facility] [address] [facility] [place] [address] Jacqui Salvador DO [address] [place] [address] 07/05/2025 9:20 AM CDT [facility] 3 [facility], [address] [place] [phone] Bravo Suh DO 3 [facility] [address] [place] [address] 08/01/2025 1:00 PM MANAGER DATA WAREHOUSING Office Visit [facility] [place] [address] [place] [phone] Bharat Cox MD 3 [facility] [place] [address] [place] [address] 09/18/2025 10:40 AM MANAGER DATA WAREHOUSING [facility] 3 [facility], [address] [place] [phone] Med Fiore MD 3 [facility] [place] [address] documented as of this encounter Visit Diagnoses Not on filedocumented in this encounter Additional Health Concerns Infection Onset Date Last Indicated Resolved Time COVID-19 Rule Out 12/07/2019 12/07/2019 08/05/2021 2:39 PM MANAGER DATA WAREHOUSING COVID-19 Rule Out 04/15/2020 04/15/2020 04/16/2020 2:39 PM CDT COVID-19 Rule Out 04/17/2020 04/15/2020 06/16/2020 12:33 AM CDT COVID-19 Rule Out 11/16/2020 11/16/2020 11/16/2020 12:25 PM MANAGER DATA WAREHOUSING COVID-19 Rule Out 05/07/2022 05/07/2022 05/07/2022 10:06 AM CDT COVID-19 Confirmed Comment:05/27/[address] Campuzano, patient meets [facility] guidelines to discontinue COVID-19 isolation. (RG) 05/07/2022 05/07/2022 05/27/2022 8:15 AM C DT COVID-19 Rule Out 2022 2022 2022 10:10 AM MANAGER DATA WAREHOUSING COVID-19 Rule Out 11/15/2022 11/15/2022 11/15/2022 1:57 PM MANAGER DATA WAREHOUSING COVID-19 Rule Out 03/19/2024 03/19/2024 03/19/2024 4:16 PM CDT COVID-19 Rule Out 03/21/2024 03/21/2024 03/21/2024 12:26 PM CDT documented as of this encounter Care Teams Paper Production Engineer Relationship Specialty Start Date End Date Jacqui Salvador DO PCP - General FAMILY PRACTICE 06/19/16 Katia Regan, ANP- [address] [facility] [address] [place] [address] NURSE PRACTITIONER ADULT HEALTH 12/28/20 documented as of this encounter
--- OUTSIDE RECORDS SUMMARY | 2025-06-05 14:24 | XMS_ITS | Encounter Summary ---
Author Organization [facility] Address [facility] [place] [address] Care Team Providers Care Funeral Workers Name Role Phone Jacqui Salvador Primary Care Provider [phone] Katia Regan ANP- Unavailable [phone] Encounter Details Date Type Department Care Team (Latest Contact Info) Description 05/17/2025 NewCell Message [facility] [place]ventional [place] [address] [phone] [facility] Referral Social History Tobacco Use Types Packs/Day Years Used Date Smoking Tobacco: Former Cigarettes 1 15 Q uit: 08/27/2003 Smokeless Tobacco: Never Comments:pcp to loan counselor Alcohol Use Standard Drinks/Week Comments Never 0 (1 standard drink = 0.6 oz pur e alcohol) PHQ-2 Answer Date Recorded Patient Health Questionnaire-2 Score 0 10/18/2024 Comments No Sex and Gender Information Value Date Recorded Sex Assigned at Female 10/06/2024 9:34 AM NEUROBIOLOGIST Legal Sex Female 6:20 PM CDT Gender Identity Female 12/12/2019 10:23 PM CDT Sexual Orientation Straight 11/16/2020 2: 19 PM NEUROBIOLOGIST 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 Interventional Pain Management Center [facility] [place] [address] [phone] Lyric Mcdonnell, AGRICULTURAL CHEMIST 3 [facility] [address] [place] [address] [phone] (Work) 06/22/2025 11:15 AM CDT Office Visit [facility] [place] [address] Oliver Nuñez, MEDICAL SCREENER [facility] [address] [place] [address] 06/27/2025 9:40 AM CDT Office Visit [facility] [address] [place] [address] Jacqui Salvador, DO [address] [place] [address] 07/05/2025 9:20 AM CDT [facility] 3 [facility] [address] [place] [phone] Bravo Suh DO 3 [facility] [address] [place] [address] 08/01/2025 1:00 PM NEUROBIOLOGIST Office Visit [facility] Specialty Clinic [address] [phone] Bharat Cox MD 3 [facility] [place] [address] [place] [address] 09/18/2025 10:40 AM NEUROBIOLOGIST Office Visit [facility] 3 [facility], [address] [place] [phone] Med Fiore MD 3 [place] [address] documented as of this encounter Goals Goal Patient Goal Type Associated Problems Recent Progress Patient-Stated? Author Return to [facility] General No Marianne Zimmerman, CHICKEN HANGER Patient will return to prior living situation [...] documented as of this encounter Care Teams Funeral Workers Relationship Specialty Start Date End Date Jacqui Salvador DO PCP - General FAMILY PRACTICE 06/19/16 Katia Regan, ANP- [address] [facility] [address] [place] [address] NURSE PRACTITIONER ADULT HEALTH 12/28/20 documented as of this encounter
== END 2025-06-05 14:04 | disposition home or self-care (01) ==
PROVIDERS: PCP Family Medicine Sports Medicine; Visit Provider Urology
DX: N20.0 Calculus of kidney (principal); M85.88 Other specified disorders of bone density and structure, other site; Z46.6 Encounter for fitting and adjustment of urinary device
CPT/HCPCS: 74018